=== PATIENT | female | born 1980 | race Caucasian/White ===

== ENCOUNTER → 2020-01-25 | Outpatient (CLI) | payer OTHER, SELFPAY ==
[2020-01-25 14:12] VITALS: BMI 31.5
--- NOTE | 2020-01-25 14:15 | ASPS_PTH ---
PATIENT: ELIZA CLEVELAND LOC: [facility] U#:[id number] AGE/SX: 39/F ROOM: RE01/25/[address]: Dr. Kennedy Power MD : 1980 BED: DIS: 01/25/2020 SPEC #: [id number] RECD: 01/25/20 15:52 STATUS: BELLA MATT #: [id number] LE: 01/25/20 14:[address]: Kennedy Power DEPT: CYTOLOGY RECD BY: Omaira Farley ENTERED: 01/26/20 07:27 SP TYPE: ASPIRATION OTHR DR: Dr. Cullen Del Castillo, DO No Primary Care Phys Tissues: Thyroid gland, NOS Procedures: Special Stain Group II Cytology Other HEADER OPERATION: Ultrasound-guided fine needle aspiration left thyroid PRE-OP DIAGNOSIS: Uninodular goiter TISSUE SUBMITTED: Fine needle aspiration left thyroid (12 slides) DIAGNOSIS CYTOLOGY Left thyroid nodule, ultrasound-guided FNA (smears): Consistent with chronic lymphocytic thyroiditis. Adequate for evaluation. See comment. SJ:edith 01/26/20 COMMENT Correlation with clinical, radiologic findings and appropriate follow up are necessary. CYTOLOGY STUDY Slides are reviewed. CYTOLOGY GROSS Received are 12 smears labeled with the patient's name and designated per the requisition as left thyroid. Submitted for staining. / edith 01/26/20 TC:5 CPT: 28899
== END | disposition home or self-care (01) ==
LOC: LABSPEC 16:03
PROVIDERS: Referring Provider Surgery; Visit Provider Surgery
DX: E04.1 Nontoxic single thyroid nodule (principal)
CPT/HCPCS: 88161; 88313

== ENCOUNTER 2020-02-07 09:19 | Day surgery (SDC) | payer SELFPAY, OTHER ==
[2020-01-18 13:34] VITALS: BMI 31.5
[2020-01-25 14:12] VITALS: BMI 31.5
--- NOTE | 2020-02-07 08:24 | HP_ITS ---
Intake Vital Signs 01/18/20 Height 5 ft 3 in 01/18/20 Weight: 145 lb 5 oz 01/18/20 BMI 25.7 01/18/20 BP 120/74 01/18/20 Blood Pressure Location Rt brachial 01/18/20 Position Sitting 01/18/20 Respiration 16 01/18/20 Pulse 81 01/18/20 Temp 98.1 F 01/18/20 Temp Source Temporal 01/18/20 Pulse Oximetry (%) 100 01/18/20 Oxygen Delivery Method room air Intake Visit Reasons: SECOND OPINION THYROID, RUQ PAIN Chief Complaint: epigastric/RUQ pain, left thyroid nodule Slide Attendant Required: No Is patient in pain?: No Allergies latex Allergy (Verified 01/18/20 13:33) Rash Medications dicyclomine 10 mg capsule 10 mg PO BID 01/18/20 [History Confirmed 01/18/20] lansoprazole 30 mg capsule,delayed release 30 mg PO TID cap 01/18/20 [History Confirmed 01/18/20] Is last menstrual period known: No Post menopausal: No Patient : No PFSH Medical History GERD (gastroesophageal reflux disease) (Acute) Hemorrhoid (Acute) Surgical History History of 3 sections (Acute) History of appendectomy (Acute) History of section (Acute) Family History Father Osteoarthritis Social History (Updated 01/18/20 @ 13:[address] Kennedy Power MD) Smoking Status: Never smoker HPI HPI Surgical H&P: Yes HPI: ELIZA CLEVELAND, is a 39 F who presents to the office today for Evaluation of epigastric pain and uninodular goiter. Patient has had an ultrasound done of her thyroid gland completed on 12/08/2019. This showed a 1.5 x 1.2 x 1 cm nodule on the left isthmus upper pole. She was also noted to have an elevated thyroid peroxidase antibody with her TSH T3 and free T4 all within normal limits. She has not had any neck tenderness and she has not been exposed to radiation of any kind. Patient has been experiencing epigastric pain into the right upper quadrant with increasing bloating over the last 1-1/2 years for the bloating. The pain is been happening over the last several months. Seems to be worse with spicy foods or greasy foods salads and raw vegetables. She was initially improving with some supplements but started to develop the discomfort again and subsequently stopped her supplements. She has also noticed improvement when she is taken some Pepto-Bismol. She has had normal stools but she has had some nausea and vomiting. She has been started on a proton pump inhibitor she has been given a prescription for Bentyl. On 12/04/2019 she had a positive H. pylori IgG qualitative test. She had a stool specimen which was negative for H. pylori antigen. She subsequently was not started on any antibiotics. She has had liver function test which have all been within normal limits.She has had a gallbladder ultrasound which showed no stones or sludge no gallbladder wall thickening and no pericholecystic fluid. Common bile duct was normal in size. She has had and a HIDA scan with ejection fraction which showed a 65% ejection fraction. ROS General General: No weight change, appetite, fatigue, colon cancer, breast cancer or weakness HEENT HEENT: No difficulty swallowing, eye injury, eye surgery, swollen glands or hoarseness Endo Endocrine: No thyroid disease, diabetes mellitus, thyroid cancer, Hair loss, heat intolerance or cold intolerance Musc Musculoskeletal: No back problems, arthritis, rheumatoid arthritis, gout or joint pain Cardio Cardiovascular: No murmur, pacemaker, heart disease, atrial fibrillation, high blood pressure, heart attack, heart stent, palpitations, shortness of breat with exertion or chest pain Psych Psychiatric: No depression, anxiety or hearing voices Resp Respiratory: No shortness of breath, No sleep apnea, No cough, No COPD, No asthma, No emphysema, No wheezing Gastro Gastrointestinal: Yes abdominal pain, No nausea or vomiting, No diarrhea, No constipation, No blood in stool, No acid reflux, Yes hemorrhoids, No ulcers, No gallbladder problem, No black,tarry stools [place] Hematologic: No blood thinners, No blood disorders, No bleeding, No anemia, No blood clots Neuro Neurologic: No weakness Exam Const General: no acute distress, well developed, well hydrated Orientation: oriented to person, oriented to place, oriented to time [facility] Head: normocephalic, atraumatic Ears: external ears normal Mouth: moist mucous membranes Other: Thyroid Exam: No hard nodules are identified on either lobe of the thyroid gland. There is no lymphadenopathy bilaterally. Eyes Sclera: sclerae normal Pupils: normal by confrontation Neck Neck: no lymphadenopathy noted Neck mass: No Thyroid: thyroid normal, symmetrical Chest Chest palpation & inspection: normal inspection of the chest Resp Effort & Inspection: normal respiratory effort Auscultation: clear to auscultation bilaterally Percussion: percussion normal Cardio Rate: regular rate Rhythm: regular rhythm Heart Sounds: no murmurs GI Palpation: soft, no hepatosplenomegaly, no masses, nontender Rectal Exam: other Other: Rectal exam deferred. Extrem General: normal to inspection, no clubbing, cyanosis or edema Assessment & Plan Problems 1. Uninodular goiter E04.1 2. Epigastric abdominal pain R10.13 Plan I have discussed the above with the patient. I have offered the patient esophagogastroduodenoscopy for evaluation. I have explained the risks/benefits of the procedure and described the procedure. I have discussed the risks with the patient, including but not limited to: infection, bleeding, perforation of the GI tract requiring emergency surgery, inability to complete the procedure, injury to any internal organs, complications of anesthesia, etc. - the patient understands and agrees to proceed. I have answered all the patient's questions to the patient's satisfaction and the patient has no further questions. The patient has been given instructions for the colon cleansing preparation. I will be doing a biopsy of both the stomach and the small intestine. I will also be doing a fine-needle aspiration of the left thyroid nodule. Risk benefits include bleeding bruising possible irritation to the muscles in that area have been reviewed with the patient the patient agrees to proceed. Coding Level of Care Code Off vis,new,level 4 Diagnoses Uninodular goiter E04.1 Epigastric abdominal pain R10.13 COVID (Procedure Consent) Procedure Criteria Procedure Criteria: Yes Elective The surgeon/proceduralist and patient have discussed in detail the risk of exposure to and/or potential harm posed by the COVID-19 virus with having a surgery/procedure at this time versus the risk of? delaying the surgery/procedure. It is not possible to know either the risk of delaying the surgery or procedure or chance of getting an infection with perfect accuracy, but a joint decision was made between the patient and the surgeon/proceduralist ?to proceed at this time with the scheduled surgery/procedure as indicated on the consent form. I have re-examined the patient. There are no clinical changes since date of exam.
[2020-02-07] MEDS: Lactated Ringers 1,000 ML 75 ML IV (09:40)
[2020-02-07 09:56] VITALS: BP 110/65; PULSE 76; RESP 16; TEMP 36.8; O2SAT 99; BMI 26.5
[2020-02-07 10:25] VITALS: BP 110/65; BP 95/49; PULSE 80; RESP 18; TEMP 37.1; O2SAT 95
--- NOTE | 2020-02-07 10:25 | OP.EGD_ITS ---
Patient Name: Irma Combs Procedure Date: 02/07/2020 10:07 AM Date of : 1980 Age: 39 Procedure: Upper GI endoscopy Indications: Epigastric abdominal pain Providers: Kennedy Power MD Referring MD: Nasra Laws Medicines: See the Anesthesia note for documentation of the administered medications Patient Profile: This is a 39 year old female. Refer to note in patient chart for documentation of history and physical. Complications: No immediate complications. Procedure: Pre-Anesthesia Assessment: - Prior to the procedure, a History and Physical was performed, and patient medications and allergies were reviewed. The patient's tolerance of previous anesthesia was also reviewed. The risks and benefits of the procedure and the sedation options and risks were discussed with the patient. All questions were answered, and informed consent was obtained. Prior Anticoagulants: The patient has taken no previous anticoagulant or antiplatelet agents. ASA Grade Assessment: II - A patient with mild systemic disease. After reviewing the risks and benefits, the patient was deemed in satisfactory condition to undergo the procedure. After obtaining informed consent, the endoscope was passed under direct vision. Throughout the procedure, the patient's blood pressure, pulse, and oxygen saturations were monitored continuously. The gastroscope was introduced through the mouth, and advanced to the second part of duodenum. The upper GI endoscopy was accomplished without difficulty. The patient tolerated the procedure well. Scope In: 10:17:15 AM Scope Out: 10:20:28 AM Total Procedure Duration Time 0 hours 3 minutes 13 seconds Findings: The examined esophagus was normal. No biopsies or other specimens were collected for this exam. The entire examined stomach was normal. Biopsies were taken with a cold forceps for Helicobacter pylori testing. The examined duodenum was normal. Biopsies for histology were taken with a cold forceps for evaluation of celiac disease. Impression: - Normal esophagus. No specimens collected. - Normal stomach. Biopsied. - Normal examined duodenum. Biopsied. Recommendation: - Await pathology results. - Repeat upper endoscopy (date not yet determined) for surveillance. - Return to my office in 1 week. - Continue present medications. Procedure Code(s): --- Professional --- 38657, Esophagogastroduodenoscopy, flexible, transoral; with biopsy, single or multiple Diagnosis Code(s): --- Professional --- R10.13, Epigastric pain CPT copyright 2017 [employer]. All rights reserved. The codes documented in this report are preliminary and upon customer engineering specialist review may be revised to meet current compliance requirements. MD Kennedy La MD 02/07/2020 10:25:15 AM This report has been signed electronically. Number of Addenda: 0 Note Initiated On: 02/07/2020 10:07 AM
--- NOTE | 2020-02-07 10:26 | OP.CCLET_ITS ---
02/07/2020 Nasra Laws Re : Upper GI endoscopy procedure for Irma Combs Dear Robert This procedure was performed on Friday, February 07, 2020. My impressions and recommendations are as follows: Impressions : - Normal esophagus. No specimens collected. - Normal stomach. Biopsied. - Normal examined duodenum. Biopsied. Recommendations : - Await pathology results. - Repeat upper endoscopy (date not yet determined) for surveillance. - Return to my office in 1 week. - Continue present medications. My findings are described in the full procedure note, which is enclosed. If I can be of further assistance, please feel free to contact me at Doctor phone number(s): , Fax: [phone], Work: . Sincerely, MD Kennedy La MD 02/07/2020 10:25:15 AM This report has been signed electronically.
[2020-02-07 10:30] VITALS: BP 110/65; BP 94/48; PULSE 72; RESP 16; O2SAT 96
--- NOTE | 2020-02-07 10:30 | EGD_PTH ---
PATIENT: ELIZA CLEVELAND LOC: EN U#:[id number] AGE/SX: 39/F ROOM: RE02/07/[address]: Dr. Kennedy Power MD : 1980 BED: DIS: 02/07/2020 SPEC #: [id number] RECD: 02/07/20 11:50 STATUS: BELLA REGenaro #: [id number] LE: 02/07/20 10:[address]: Kennedy Power DEPT: SURGICAL PATHOLOGY RECD BY: Jada Flannery ENTERED: 02/07/20 13:44 SP TYPE: EGD BIOPSY OTHR DR: Rosina Jones, IVAN-C Tissues: A - Duodenum, NOS B - Gastric mucous membrane Procedures: Surgery Specimen Level IV HEADER OPERATION: EGD ([facility] [place]) PRE-OP DIAGNOSIS: Uninodular goiter, epigastric abdominal pain TISSUE SUBMITTED: A - Duodenal biopsy, B - Antrum biopsy for histo and H. pylori MICROSCOPIC DIAGNOSIS A. Duodenal biopsy: A fragment of duodenal mucosa with congestion and hemorrhage. B. Antrum biopsy: Moderate chronic active gastritis. LITZY:edith 02/08/20 COMMENT B. The results of immunohistochemistry for Helicobacter pylori will be reported separately ([id number]). MICROSCOPIC DESCRIPTION Slides are reviewed. GROSS DESCRIPTION A - Received in fixative is one container labeled with the patient's name and designated duodenal biopsy. The specimen consists of one irregular fragment of light ko soft tissue that measures 0.4 x 0.3 x 0.1 cm. The specimen is totally submitted in one cassette. B - Received in fixative is one container labeled with the patient's name and designated antrum biopsy. The specimen consists of one irregular fragment of light ko soft tissue that measures 0.4 x 0.3 x 0.1 cm. The specimen is totally submitted in one cassette. / LITZY:edith 02/07/20 TC:2 CPT: 08289 x2
--- NOTE | 2020-02-07 10:30 | IMM_PTH ---
PATIENT: ELIZA CLEVELAND LOC: EN U#:[id number] AGE/SX: 39/F ROOM: RE02/07/[address]: Dr. Kennedy Power MD : 1980 BED: DIS: 02/07/2020 SPEC #: [id number] RECD: 02/07/20 15:32 STATUS: BELLA REQ #: [id number] LE: 02/07/20 10:[address]: Kennedy Power DEPT: IMMUNOHISTOCHEMISTRY RECD BY: Diya Davis ENTERED: 02/07/20 15:32 SP TYPE: IMMUNO OTHR DR: Rosina Jones, CIPRIANO Tissues: B - Stomach, NOS Procedures: H Pylori (initial) PHYSICIAN & INSTITUTION [place] [id number] SPECIMEN INFORMATION: Tissue Source: B - Antrum biopsy Clinical Info: Uninodular goiter, epigastric abdominal pain Specimen Number: [id number] CPT code: 75373 METHODOLOGY: Deparaffinized sections of prefer/formalin-fixed tissue or PAP/DQ stained slides are incubated with monoclonal/polyclonal antibodies/oligonucleotide probes. Localization is made via biotin free immunoperoxidase method. Appropriate controls are performed and reacted as expected. Results on target cell population are indicated in the following table: RESULTS: ANTIBODY / CLONE RESULT Block B H Pylori (polyclonal) positive These tests were developed and their performance characteristics determined by [facility]. They may not have been cleared or approved by the U.S. Food and Drug Administration. The FDA has determined that such clearance or approval is not necessary. INTERPRETATION: B. Antrum biopsy: Positive for numerous H. pylori organisms. LITZY:edith 02/08/20
[2020-02-07 10:35] VITALS: BP 110/65; BP 93/54; PULSE 73; RESP 16; O2SAT 97
[2020-02-07 10:43] VITALS: BP 110/65; BP 95/53; PULSE 67; RESP 16; TEMP 36.2; O2SAT 99
[2020-02-07 11:37] VITALS: BP 110/65
== END 2020-02-07 11:37 | disposition home or self-care (01) ==
LOC: EN 09:21 → AC 09:22
PROVIDERS: Anesthesiology; PCP Nurse Practitioner Family; Referring Provider Nurse Practitioner Family; Visit Provider Surgery
PROC: 0DJ08ZZ Inspection of Upper Intestinal Tract, Via Natural or Artificial Opening Endoscopic (ICD-10-PCS; CPT 43235; principal; 2020-02-07 10:25)
DX: K29.50 Unspecified chronic gastritis without bleeding (principal); B96.81 Helicobacter pylori [H. pylori] as the cause of diseases classified elsewhere; K21.9 Gastro-esophageal reflux disease without esophagitis; R10.13 Epigastric pain; E04.1 Nontoxic single thyroid nodule; Z20.828 Contact with and (suspected) exposure to other viral communicable diseases
CPT/HCPCS: 43239; 87635; 88305; 88342; C9803; J7120; J2405; U0003

== ENCOUNTER 2022-06-24 22:48 | Emergency (ER) | payer OTHER, SELFPAY ==
[2022-06-24 22:49] VITALS: BP 127/91; PULSE 112; RESP 16; TEMP 36.9; O2SAT 100; BMI 26.4
[2022-06-24] MEDS: 0.9% Normal Saline 1,000 ML 999 ML IV (23:45)
[2022-06-24] MEDS: Ketorolac 30 MG/ML Syringe IV (23:45)
[2022-06-24 23:52] LABS: Absolute Lymphocyte Count 1.85 X10^3/uL (0.83-4.51); Absolute Neutrophil Count 4.5 X10^3/uL (2.0-7.7); Basophil# 0.03 X10^3/uL; Basophil% 0.4 % (0-1); Eosinophil# 0.42 X10^3/uL; Eosinophils% 5.6 % (0-5); Hematocrit 42.2 % (37-47); Hemoglobin 14.7 g/dL (12.0-15.0); Lymphocyte # 1.85 X10^3/ul (0.83-4.51); Lymphocyte % 24.9 % (19-41); Mean Corp Hgb Conc 34.8 g/dL (32-36); Mean Corpuscular Hgb 31.5 pg (27.0-32.0); Mean Corpuscular Volume 90.4 fL (81-99); Monocyte% 8.1 % (0-10); NRBC Flagged by Analyzer 0 % (0-5); Neutrophil # 4.52 X10^3/uL (2.7-7.7); Neutrophil % 60.7 % (47-70); POSITIVE COUNT YES; Platelet Count 131 K/mm3 (150-450); RBC Distribution Width CV 12.5 % (11.6-14.6); RBC Distribution Width SD 41.1 fl (35.1-43.9); Red Blood Count 4.67 M/mm3 (4.2-5.4); White Blood Count 7.4 K/mm3 (4.4-11.0)
[2022-06-24 23:54] LABS: Differential Indicated SCAN CRITERIA MET
[2022-06-24 23:58] LABS: Color, Urine Amber (Yellow); Glucose, Dipstick Normal (Normal); Ketone-Dipstick 50 mg/dl (Negative); Leukocyte Esterase-Dipstick Negative /ul (Negative); Mucous, Urine 0 SEEN /hpf (<or=2+); Nitrite-Dipstick Positive (Negative); Occult Blood-Urine 10 /ul (Negative); Protein-Dipstick Negative (Negative); Red Blood Cells-Urine 0 SEEN /hpf (0-5); Urine Clarity Clear (Clear); Urine Urobilinogen 4 mg/dl (Normal)
[2022-06-25 00:01] LABS: Internal QC Validated? YES +Cl - CLEAR BKGD
[2022-06-25 00:02] LABS: Pregnancy, Urine Negative Negative
[2022-06-25 00:05] LABS: Bacteria RARE /hpf (None Seen); Squamous Epithelial Cells - UA 0-5 SEEN /hpf (5-10); Urine Bilirubin Dipstick 3 mg/dL (Negative); White Blood Cells 0-5 SEEN /hpf (0-5)
[2022-06-25 00:10] LABS: BUN 12 mg/dL (7-18); Estimated Creatinine Clearance 74.02 ml/min; Glucose 102 mg/dL (74-106)
[2022-06-25 00:11] LABS: Anion Gap 7 (5-15); BUN/Creat Ratio 13.3 RATIO (10-20); Calcium,Total 9.5 mg/dL (8.5-10.1); Chloride 106 mmol/L (98-107); EST Glomerular Filtration Rate 73 mL/min (>60); Est Glom Filt Rate - Afr Amer 88 mL/min (>60); Sodium Level 138 mmol/L (136-145)
[2022-06-25 00:18] LABS: Platelet Morphology CLUMPED
[2022-06-25 01:31] VITALS: BP 106/71; PULSE 84; RESP 15; TEMP 36.8; O2SAT 97
--- NOTE | 2022-06-25 01:40 | EDS_ITS ---
HPI History of Present Illness Chief Complaint: Complaint Narrative Narrative: Patient is a 41-year-old female with no significant past medical history. She states she was seen at an outside facility and diagnosed with a UTI roughly 5 to 7 days ago. She states that she did not feel she was having improvement with her Keflex so she was transition to Macrobid. She states she has been on that now for a few days but despite taking it has still had urinary frequency with this spasm sensation and now she is developing bilateral lower abdominal/inguinal pain. She denies any fevers or chills any vaginal discharge or bleeding or concern for but with the persistent symptoms comes in for evaluation [facility] Medical History (Updated 06/25/22 @ 01:[address] Jaden Garcia, DO) Chronic lymphocytic thyroiditis GERD (gastroesophageal reflux disease) Hemorrhoid Positive H. pylori test Uninodular goiter Home Medications dicyclomine 10 mg capsule 10 mg PO BID 01/18/20 [History Last Taken Unknown] cephalexin 500 mg capsule 500 mg PO Q12H 10 days #20 caps 06/19/22 [Rx Last Taken Unknown] Allergy/AdvReac Type Severity Reaction Status Date / Time latex Allergy Rash Verified 06/24/22 22:51 Family History Father Osteoarthritis Surgical History History of 3 sections History of appendectomy History of section History of esophagogastroduodenoscopy (EGD) (~02/07/20) history thyroid biopsy (~01/25/20) Social History (Updated 06/25/22 @ 00:[address] Zaynab José MD) household members: spouse and family Smoking Status: Never smoker alcohol intake: never substance use type: does not use ROS ROS ED Constitutional Constitutional ED: Denies chills or fever(s) ENT ENT ED: Denies sore throat Cardiovascular Cardiovascular: Denies chest pain Respiratory/Chest Respiratory/Chest: Denies cough or dyspnea Gastrointestinal Gastrointestinal: Reports abdominal pain; Denies diarrhea, nausea or vomiting Genitourinary Genitourinary ED: Reports urinary frequency; Denies dysuria or hematuria Musculoskeletal Musculoskeletal: Reports back pain; Denies myalgias Integumentary Denies rash Neurologic Neurologic: Denies headache(s) Hematologic/Lymphatic Hematologic/Lymphatic: Denies easy bleeding or easy bruising EXAM Physical Exam Const Vital Signs: 06/24/22 22:49 06/25/22 01:31 06/25/22 01:51 Temperature 98.4 F 98.2 F Temperature Source Temporal Oral Pulse Rate 112 H 84 84 Respiratory Rate 16 15 15 Blood Pressure 127/91 H 106/71 106/71 Blood Pressure Mean 103 82 Pulse Ox 100 97 97 Oxygen Delivery Method Room Air Room Air Positive well nourished and well developed General Appearance ED: well developed HEENT Reports moist mucous membranes Eyes PERRL and EOMs intact bilaterally General Eye ED: Negative for scleral icterus Neck supple Resp normal respiratory effort and clear to auscultation bilaterally Cardio regular rate and regular rhythm Rate: other Other Details: Radial pulses are plus 2 out of 4 bilaterally are equal and symmetric GI non-distended and no masses GI Narrative: Abdomen is soft and nondistended with normal active bowel sounds. There is mild pain on palpation in the suprapubic region and bilateral inguinal regions without voluntary guarding or rigidity. No organomegaly to suggest bladder retention Auscultation: normoactive bowel sounds Palpation: soft Back/Spine Back/Spine Narrative: Mild right CVA pain Extremity normal to inspection Neuro oriented x3 and CN's II-XII intact bilaterally Sensorium / Orientation: alert Psych mental status grossly normal Skin no rashes or lesions noted Skin Narrative: No overlying soft tissue changes to suggest trauma or infection General Skin Exam: Negative for jaundice MDM MDM MDM Narrative Medical decision making narrative: Patient presented to the ER in no acute distress with stable vitals and a soft nonsurgical abdomen. She reported lower abdominal pain with urinary frequency and recent diagnosis of UTI and now she had mild right-sided CVA pain. Secondary to this there is concern that she is developing pyelonephritis or has some type of ovarian pathology with the inguinal pain causing her worsening symptoms. Therefore elected to check blood work urine sample and a CT scan with IV contrast based on the persistent nature of her symptoms despite antibiotic use. Blood work revealed no clinically significant findings and urine did not show any obvious infection as she has only few bacteria reported with no white blood cells. CT scan revealed an involuting ovarian cyst but otherwise no acute abdominal pathology. Therefore at this time as she does not have signs of urosepsis or acute kidney injury there is no signs of pyelonephritis or obvious intestinal infection and it does not appear that the involuting cyst would be causing issues I do not believe there is need for ultrasound or further work-up. Patient's urine was sent for culture but she was advised to stay on her Macrobid as the urine sample shows that the medication has been helping. She was advised to follow-up with her family doctor and/or urology for further testing if symptoms persist despite treatment and negative work-up. Plan of care was discussed with patient and and both are agreeable to it History & Record Review Discussion w/independent historian: Patient and Significant other Lab Data Attestation: I reviewed the patient's lab results. Labs: Laboratory Results - last 24 hr 06/24/22 06/24/22 06/24/22 23:40 23:40 23:50 WBC 7.4 RBC 4.67 Hgb 14.7 Hct 42.2 MCV 90.4 MCH 31.5 MCHC 34.8 RDW Std Deviation 41.1 RDW Coeff of Ramírez 12.5 Plt Count 131 L MPV 12.0 Immature Gran % (Auto) 0.300 Neut % (Auto) 60.7 Lymph % (Auto) 24.9 Donley % (Auto) 8.1 Eos % (Auto) 5.6 H Baso % (Auto) 0.4 Absolute Neuts (auto) 4.5 Absolute Lymphs (auto) 1.85 Nucleated RBC % 0 Plt Morphology Comment CLUMPED Sodium 138 Potassium 4.0 Chloride 106 Carbon Dioxide 25.0 Anion Gap 7 BUN 12 Creatinine 0.90 Estim Creat Clear Calc 74.02 Est GFR (MDRD) Af Amer 88 Est GFR (MDRD) Non-Af 73 BUN/Creatinine Ratio 13.3 Glucose 102 Calcium 9.5 Urine Color Kari Urine Clarity Clear Urine pH 6.0 Ur Specific Emery 1.020 Urine Protein Negative Urine Glucose (UA) Normal Urine Ketones 50 H Urine Occult Blood 10 H Urine Nitrite Positive H Urine Bilirubin 3 H Urine Urobilinogen 4 H Ur Leukocyte Esterase Negative Urine RBC 0 SEEN Urine WBC 0-5 SEEN Ur Squamous Epith Cells 0-5 SEEN Urine Bacteria RARE Urine Mucus 0 SEEN Urine Test Negative Radiography Diagnostic Testing: Clinical Impression(s) from Imaging Studies Abdomen/Pelvis CT 06/25/22 23:15 IMPRESSION: No CT evidence of acute intra-abdominal disease. Electronically Signed: Stephania Combs MD at 1:23 EST Reading Location ID and State: [facility] / [place] , Service support , Discharge Plan Triage Chief Complaint: Complaint ED Provider: Jaden Garcia Dx/Rx/DC Orders Clinical Impression: Dysuria, Nonspecific abdominal pain Instructions: Abdominal Pain, Dysuria Prescriptions: No Action dicyclomine 10 mg capsule 10 mg PO BID cephalexin 500 mg capsule 500 mg PO Q12H 10 Days Qty: 20 0RF Primary Care Provider: Rosina Jones NP Referrals: Rosina Jones NP, TRUCK MECHANIC APPRENTICE-C [Primary Care Provider] - Activity Restrictions/Additional Instructions: Please finish out the Macrobid/nitrofurantoin that you are taking along with the Pyridium as your urine sample today does shows trace amount of bacteria indicating the antibiotic is working. Your urine was sent for culture but if you do not hear anything in the next 2 to 3 days then this indicates that the Macrobid was appropriate. If you have any further concerns please return to the ER for repeat evaluation Disposition Disposition: Home, Self Care Discharge Date/Time: 06/25/22 02:12
[2022-06-25 01:51] VITALS: BP 106/71; PULSE 84; RESP 15; O2SAT 97
--- NOTE | 2022-06-25 23:15 | CT_ITS ---
STUDY: CT ABDOMEN AND PELVIS WITH CONTRAST REASON FOR EXAM: Female, 41 years old patient with abdominal pain. RADIATION DOSAGE (If Supplied By Facility): CTDIvol = ( 29.2 ) mGy, DLP = ( 781.45 ) mGycm TECHNIQUE: Transaxial images were obtained from the dome of the diaphragm to the symphysis pubis without oral contrast. 100 mL of IV Isovue-370 was administered. Sagittal and coronal images were reconstructed. Individualized dose optimization techniques were used for this CT. COMPARISON: Prior comparison studies are not available for review at this time. FINDINGS: The visualized lung bases are unremarkable. The visualized portions of the heart are within normal limits. Normal liver. Normal gallbladder and extrahepatic biliary system. Normal spleen. Normal pancreas. Normal bilateral adrenal glands. Normal right kidney. Normal left kidney. Normal visualized stomach. There is no obvious dilated bowel, ascites or pneumoperitoneum. The small bowel has a grossly normal appearance. There is stool visible throughout the colon with scattered diverticula. There is non-visualization of the appendix. Normal abdominal aorta. Normal inferior vena cava. Normal retroperitoneum. Urinary bladder is nondistended. Normal visualized uterus. There is a small amount of pelvic fluid which may be physiologic. There is involuting left-sided ovarian cyst Normal abdominal wall. Normal osseous structures. CT/Abdomen/Pelvis W IV Cont ONLY IMPRESSION: No CT evidence of acute intra-abdominal disease. Electronically Signed: Stephania Combs MD at 1:23 EST ,
== END 2022-06-25 02:12 | disposition home or self-care (01) ==
PROVIDERS: Emergency Provider Emergency Medicine; PCP Nurse Practitioner Family; Visit Provider Emergency Medicine
DX: R30.0 Dysuria (principal); R10.32 Left lower quadrant pain; R10.31 Right lower quadrant pain
CPT/HCPCS: 74177; 80048; 81001; 81025; 85025; 87086; 96361; 96374; 99282; Q9967; A4216

== ENCOUNTER → 2023-05-13 | Outpatient (CLI) | payer OTHER, SELFPAY ==
--- OUTSIDE RECORDS SUMMARY | 2023-05-13 14:44 | XMS RPT_ITS | CCD ---
Author Name Unknown Address [facility] [place] [id number] Organization [facility] Care Team Providers Care Core Rescuer Name Role Phone Robert CLIN NURSE.Rosina NICHOLSON Primary Care Provider ROBERT, ROSINA Primary Care Unavailable ROBERT, ROSINA Primary Care Unavailable ROBERT, ROSINA Attending Unavailable ROBERT, ROSINA Referring Unavailable ROBERT, ROSINA Primary Care Unavailable ROBERT, ROSINA Referring Unavailable ROBERT, ROSINA Primary Care Unavailable ROBERT, ROSINA Attending Unavailable ROBERT, ROSINA Primary Care Unavailable ROBERT, ROSINA Primary Care Unavailable ROBERT, ROSINA Primary Care Unavailable Robert CLIN NURSE.Rosina NICHOLSON Primary Care Provider Allergies Allergy Classification Reported Allergen(s) Allergy Type Date of Onset Reaction(s) Facility (19 sources) Latex; Translations: [LATEX] Drug Allergy 03-27-2013 [facility] Work Phone: Medications Current Medications Medication Drug Class(es) Dates Sig (Normalized) Sig (Original) ciprofloxacin 500 mg oral tablet (3 sources) Quinolone Antimicrobial Start: 06-25-2022 End: 07-02-2022 take 1 tablet by mouth twice daily ciprofloxacin HCl (CIPRO) 500 mg tablet Take 1 tablet by mouth twice daily for 7 days. 14 tablet 0 06/25/2022 07/02/2022 Active Completed/Discontinued Medications Medication Drug Class(es) Dates Sig (Normalized) Sig (Original) dicyclomine hydrochloride 10 mg oral capsule (5 sources) Anticholinergic Start: 01-01-2020 End: 04-06-2022 take 1 capsule by mouth every six hours as needed dicyclomine (BENTYL) 10 mg capsule Take 1 capsule by mouth four times daily as needed. 30 capsule 1 01/01/2020 04/06/2022 Discontinued Problems Active Problems Problem Classification Problem Date Documented Date Episodic/Chronic Abdominal pain (3 sources) Pain in pelvis; Translations: [Pelvic and perineal pain] Onset: 07-16-2022 Episodic Genitourinary symptoms and ill-defined conditions (9 sources) Increased frequency of urination; Translations: [Frequency of micturition] Onset: 04-01-2022 Episodic Other and unspecified benign neoplasm (1 source) Lipoma (clinical); Translations: [Benign lipomatous neoplasm of other sites] Episodic Other female genital disorders (2 sources) Vaginal discharge; Translations: [Other specified noninflammatory disorders of vagina] Episodic Other female genital disorders (1 source) Other specified noninflammatory disorders of vagina; Translations: [Vaginal discharge] Onset: 07-16-2022 Episodic Other screening for suspected conditions (not mental disorders or infectious disease) (1 source) Patient encounter status; Translations: [Encounter for screening mammogram for malignant neoplasm of breast] Episodic Thyroid disorders (1 source) Thyroid nodule; Translations: [Nontoxic single thyroid nodule] Chronic Urinary tract infections (6 sources) Acute cystitis; Translations: [Acute cystitis with hematuria] Onset: 04-01-2022 Episodic Past or Other Problems Problem Classification Problem Date Documented Da te Episodic/Chronic Other and unspecified benign neoplasm (1 source) Benign lipomatous neoplasm of other sites; Translations: [Lipoma of other specified sites] Onset: 04-01-2022 Episodic Results Test Name Value Interpretation Reference Range Facil ity Vital Signs Date Time Vital Sign Value Performing Clinician Coleen pink 07-15-2022 11:41-0400 Body weight 73.57 kg Rosina Jones APRN.CNP Work Phone: [facility] 07-15-2022 11:41-0400 Diastolic blood pressure 62 mm[Hg] Rosina Jones APRN.CNP Work Phone: [facility] 07-15-2022 11:41-0400 Heart rate 99 /min Rosina Jones APRN.CNP Work Phone: [facility] 07-15-2022 11:41-0400 Respiratory rate 16 /min Rosina Jones APRN.CNP Work Phone: [facility] 07-15-2022 11:41-0400 SaO2% (BldA) [Mass fraction] 99 % Rosinajaskaran Stackman CLIN NURSE.SET UP WORKER Work Phone: [facility] 07-15-2022 11:41-0400 Systolic blood pressure 104 mm[Hg] Rosina Stackman CLIN NURSE.SET UP WORKER Work Phone: [facility] 06-23-2022 09:31-0500 Body temperature 97.7 [degF] Sima Praisler-Wood CLIN NURSE.SET UP WORKER Work Phone: [facility] 06-23-2022 09:31-0500 Body weight 72.12 kg Sima Praisler-Wood CLIN NURSE.SET UP WORKER Work Phone: [facility] 06-23-2022 09:31-0500 Diastolic blood pressure 70 mm[Hg] Sima Praisler-Wood CLIN NURSE.SET UP WORKER Work Phone: [facility] 06-23-2022 09:31-0500 Heart rate 110 /min Sima Praisler-Wood CLIN NURSE.SET UP WORKER Work Phone: [facility] 06-23-2022 09:31-0500 Respiratory rate 16 /min Sima Praisler-Wood CLIN NURSE.SET UP WORKER Work Phone: [facility] 06-23-2022 09:31-0500 SaO2% (BldA) [Mass fraction] 97 % Sima Praisler-Wood CLIN NURSE.SET UP WORKER Work Phone: [facility] 06-23-2022 09:31-0500 Systolic blood pressure 122 mm[Hg] Sima Praisler-Wood CLIN NURSE.SET UP WORKER Work Phone: [facility] 05-26-2022 07:36-0500 Body temperature 97.59 [degF] Deon Fisher CLIN NURSE.SET UP WORKER Work Phone: [facility] 05-26-2022 07:36-0500 Body weight 72.58 kg Deon Fisher CLIN NURSE.SET UP WORKER Work Phone: [facility] 05-26-2022 07:36-0500 Diastolic blood pressure 66 mm[Hg] Deon Phillip CLIN NURSE.SET UP WORKER Work Phone: [facility] 05-26-2022 07:36-0500 Heart rate 88 /min Deon Phillip CLIN NURSE.SET UP WORKER Work Phone: [facility] 05-26-2022 07:36-0500 Respiratory rate 16 /min Deon Phillip CLIN NURSE.SET UP WORKER Work Phone: [facility] 05-26-2022 07:36-0500 SaO2% (BldA) [Mass fraction] 98 % Deon Phillip CLIN NURSE.SET UP WORKER Work Phone: [facility] 05-26-2022 07:36-0500 Systolic blood pressure 102 mm[Hg] Deon Phillip CLIN NURSE.SET UP WORKER Work Phone: [facility] 04-13-2022 18:18-0500 Body temperature 97.2 [degF] January Natalio CLIN NURSE.SET UP WORKER Work Phone: [facility] 04-13-2022 18:18-0500 Body weight 74.21 kg January Natalio CLIN NURSE.SET UP WORKER Work Phone: [facility] 04-13-2022 18:18-0500 Diastolic blood pressure 80 mm[Hg] January Natalio CLIN NURSE.SET UP WORKER Work Phone: [facility] 04-13-2022 18:18-0500 Heart rate 80 /min January Natalio CLIN NURSE.SET UP WORKER Work Phone: [facility] 04-13-2022 18:18-0500 Respiratory rate 20 /min January Natalio CLIN NURSE.SET UP WORKER Work Phone: [facility] 04-13-2022 18:18-0500 SaO2% (BldA) [Mass fraction] 98 % January Natalio CLIN NURSE.SET UP WORKER Work Phone: [facility] 04-13-2022 18:18-0500 Systolic blood pressure 120 mm[Hg] January Natalio CLIN NURSE.SET UP WORKER Work Phone: [facility] 04-01-2022 10:52-0500 Body temperature 98.4 [degF] Rosina Robert CLIN NURSE.SET UP WORKER Work Phone: [facility] 04-01-2022 10:52-0500 Body weight 72.76 kg Rosina Robert CLIN NURSE.SET UP WORKER Work Phone: [facility] 04-01-2022 10:52-0500 Diastolic blood pressure 70 mm[Hg] Rosina Robert CLIN NURSE.SET UP WORKER Work Phone: [facility] 04-01-2022 10:52-0500 Heart rate 86 /min Rosina Robert CLIN NURSE.SET UP WORKER Work Phone: [facility] 04-01-2022 10:52-0500 SaO2% (BldA) [Mass fraction] 100 % Rosina Robert CLIN NURSE.SET UP WORKER Work Phone: [facility] 04-01-2022 10:52-0500 Systolic blood pressure 112 mm[Hg] Rosina Robert CLIN NURSE.SET UP WORKER Work Phone: [facility] Encounters Encounter Date Encounter Type Care Provider Facility Start: 07-20-2022 Telephone encounter Rosina [facility] CLIN NURSE.SET UP WORKER Work Phone: [facility] Procedures Date Procedure Procedure Detail Performing Clinician Start: 07-16-2022 Us pelvic nonobstetr ic image dcmtn limited/f/u Rosina Robert CLIN NURSE.SET UP WORKER Work Phone: Start: 07-15-2022 End: 07-15-2022 Urnls dip stick/tablet rgnt auto w/o microscopy Rosina Robert CLIN NURSE.SET UP WORKER Work Phone: Start: 06-23-2022 Urnls dip stick/tabl et rgnt auto w/o microscopy Chelle Shukla PA-C Work Phone: Start: 05-26-2022 Urnls dip stick/tabl et rgnt auto w/o microscopy Deon Fisher CLIN NURSE.SET UP WORKER Work Phone: Start: 04-13-2022 Culture bacterial quanttative colony count urine January Natalio CLIN NURSE.SET UP WORKER Work Phone: Start: 04-13-2022 Urnls dip stick/tabl et rgnt auto w/o microscopy Januarykristofer Lance CLIN NURSE.SET UP WORKER Work Phone: Start: 04-01-2022 Culture bacterial quanttative colony count urine Rosina Robert CLIN NURSE.SET UP WORKER Work Phone: Start: 04-01-2022 Urnls dip stick/tabl et rgnt auto w/o microscopy Rosinadarrel Stackman CLIN NURSE.SET UP WORKER Work Phone: Start: 08-11-2021 soft tissue head & neck real time imge docm [facility] Provider Plan of Treatment Date Care Activity Detail Author Start: 07-16-2027 HPV TESTING HPV TESTING [facility] Start: 07-16-2027 Pap Testing Pap Testing [facility] Start: 11-13-2024 HPV TESTING HPV TESTING [facility] Start: 11-13-2024 PAP TESTING PAP TESTING [facility] Start: 07-26-2023 Urine microalbumin profile [facility] Start: 12-18-2022 Influenza vaccination [facility] Start: 04-19-2022 DEPRESSION ASSESSMENT DEPRESSION ASSESSMENT [facility] Start: 12-18-2021 Influenza vaccination [facility] Start: 04-19-2021 DEPRESSION ASSESSMENT DEPRESSION ASSESSMENT [facility] Start: 2020 Mammography [facility] Start: 1998 HEPATITIS C SCREENING HEPATITIS C SCREENING [facility] Start: 1998 HIV SCREENING HIV SCREENING [facility] Start: 1992 Adult depression screening assessment DEPRESSION SCREENING [facility] Start: 1985 COVID-19 VACCINE (#1) COVID-19 VACCINE (#1) [facility] Start: 1985 COVID-19 VACCINE (1) COVID-19 VACCINE (1) [facility] Start: 02-11-1981 COVID-19 VACCINE (#1) COVID-19 VACCINE (#1) [facility] Start: 1980 HEPATITIS B (1 of 3 - 3-dose series) HEPATITIS B (1 of 3 - 3-dose series) [facility] Start: 1980 Hepatitis B Vaccine (1 of 3 - 3-dose series) Hepatitis B Vaccine (1 of 3 - 3-dose series) [facility] Bacteria identified in Urine by Culture URINE CULTURE Microbiology Routine Urinary frequency Burning with urination Acute cystitis with hematuria 04/01/2022 11:36 AM EST [facility] Work Phone: Bacteria identified in Urine by Culture URINE CULTURE Microbiology Routine Urinary frequency Ordered: 05/26/2022 [facility] Work Phone: Immunizations Immunization Date Immunization Notes Care Provider Ruthie dolan 07-25-2013 tetanus toxoid, redu maggie diphtheria toxoid, and acellular pertussis vaccine, adsorbed Us 2 Work Phone: [facility] Payers Date Payer Category Payer Unknown [id number] 2019 Unknown [id number] 2019 Unknown [id number] Social History Date Type Detail Facility Start: 04-01-2022 Tobacco smoking stat us AZIS Never smoked tobacco [facility] Start: 01-11-2020 End: 07-15-2022 Alcohol intake Current non-drinker of alcohol (finding) [facility] Start: 1980 Sex Assigned At Not on file [facility] Start: 04-01-2022 Tobacco use and exposure Smoke less tobacco non-user [facility] Start: 03-27-2020 End: 07-15-2022 History of Social function [facility] Start: 03-27-2020 End: 07-15-2022 Tobacco use panel [facility] National Score (1-10 0), lower number is lower risk Not on file [facility] Clinical Notes 03-27-2013 to 09-23-2022 Telephone Encounter - Mary Bone LPN - 07/20/2022 1:21 PM EDTTelephone Encounter - Rosina Jones APRN.CNP - 07/20/2022 1:14 PM Xenia Garcia RDMS - 07/16/2022 2:30 PM EDT Note Date & Type Note Facility 09-23-2022 Note Patient Outreach (IN [facility]) MEGHAIRMA Timothy ([id number]) 1980 F Date Time Provider Department 09/23/22 ROSINA JONES During your visit today, we recorded the following information about you: Allergies As of Date: 09/23/2022 Noted Allergy Reaction LATEX 03/27/2013 2 - Rash Date Reviewed: 07/15/2022 Reviewed by: Rosina Jones APRN.SET UP WORKER - Fully Assessed Visit Diagnosis:Encounter for screening mammogram for breast cancer [Z12.31] Order(s):[facility] SCREENING [[id number]] Order #: [id number] FUTURE Prescriptions as of 09/28/2022 - Lactobacillus acidophilus (PROBIOTIC ORAL) Take by mouth. - MULTIVITAMIN ORAL Take by mouth. Problem List As Of Date 09/23/2022 Noted Resolved SUPERVIS OTHER NORMAL PREG [Z34.80] 06/08/2007 11/25/2007 History of [Z98.891] 03/27/2013 10/30/2013 Late care [O09.30] 03/27/2013 10/30/2013 Family history of cleft palate [Z82.79] 03/27/2013 10/30/2013 Supervision of other normal [Z34.80] 03/27/2013 10/30/2013 Encounter Status:Closed by [employer], PRODUSER on 09/28/22 [facility] 07-20-2022 Miscellaneous Notes Spoke with pt gave information provided. Pt voices understanding. Please let Irma know that her PAP and other testing have all come back normal. Rosina Jones APRN.CNP documented in this encounter [facility] 07-16-2022 Note HNO ID: [id number] Author: Xenia Sarabia RDMS Service: ? Author Type: Kel[employer] Seag[employer] Gatherer Type: Progress Notes Filed: 07/16/2022 3:06 PM Note Text: Radiology Service Progress Note PATIENT NAME: Irma Combs DATE OF SERVICE: July 16, 2022 TIME: 3:06 PM PATIENT IDENTITY VERIFICATION COMPLETED USING TWO (2) IDENTIFIERS: Name and Date of confirmed by patient verbally. FALL SCREENING: Has the patient had 2 falls in the last year or 1 fall with injury or currently using an Ambulatory Assistive Device (Walker, Cane, Wheelchair, Crutches, etc.)? No PATIENT GENDER DATA: Female. status: : No status: NO. PATIENT RELEVANT IMPLANT DATA REVIEWED: Not Applicable RADIOLOGY DEPARTMENT: Ultrasound PERIPHERAL IV DATA: Not applicable SIGNED BY: Xenia Sarabia RDMS July 16, 2022 3:06 PM [facility] 07-16-2022 Miscellaneous Notes Noted, thank you. Rosina Jones APRN.LYN Patient notified of results, verbalizes understanding of instructions. Pt. stated she is doing better. Sara Strong LPN Please let Irma know I received the results of her ultrasound and they look normal. How is she feeling? Rosina Jones APRN.CNP documented in this encounter [facility] 07-16-2022 History of Presen t illness Narrative Radiology Service Progress Note PATIENT NAME: Irma Combs DATE OF SERVICE: July 16, 2022 TIME: 3:06 PM PATIENT IDENTITY VERIFICATION COMPLETED USING TWO (2) IDENTIFIERS: Name and Date of confirmed by patient verbally. FALL SCREENING: Has the patient had 2 falls in the last year or 1 fall with injury or currently using an Ambulatory Assistive Device (Walker, Cane, Wheelchair, Crutches, etc.)? No PATIENT GENDER DATA: Female. status: : No status: NO. PATIENT RELEVANT IMPLANT DATA REVIEWED: Not Applicable RADIOLOGY DEPARTMENT: Ultrasound PERIPHERAL IV DATA: Not applicable SIGNED BY: Xenia Sarabia RDMS July 16, 2022 3:06 PM documented in this encounter [facility] 07-15-2022 Note HNO ID: [id number] Author: Rosina Jones APRN.SET UP WORKER Service: ? 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 Recently had UTI beginning of june. HPI Irma Combs is a 41 year old female who presents here today for Above Complaints. Today: Has had multiple urinary tract infections since March 2022 and has been treated multiple places with multiple antibiotics. Has been treated in office by myself, [facility], [facility], [facility]. Antibiotics: Keflex, Macrobid, Cipro. Comes to the office today c/o continued burning with urination, small amount white discharge. Mild itching. No foul odor. Has not had intercourse since March when this all began. Does always urinate following intercourse. Not -tubes have been tied. No fevers. LMP 06/30/2022 as was normal for her. Is scheduled to see urology on 08/03. Past medical history, appointments, medications, allergies reviewed. Previous Medical History PAST MEDICAL HISTORY Diagnosis Date Anemia WITH Previous Surgical History PAST SURGICAL HISTORY Procedure Laterality Date APPENDECTOMY 1992 DELIVERY ONLY , low cervicalX3 DELIVERY ONLY 09/15/13 , low transverse LIG/TRNSXJ FLP TUBE ABDL/VAG APPR UNI/BI 09/15/13 Tubal ligation Family History FAMILY HISTORY Problem Relation Age of Onset Arthritis Mother Arthritis Maternal Grandmother Heart Maternal Grandfather Stroke Maternal Grandfather Cancer Paternal Grandfather BRAIN Patient Allergies ALLERGIES Allergen Reactions Latex Rash Current Medications Current Outpatient Medications on File Prior to Visit Medication Sig Lactobacillus acidophilus (PROBIOTIC ORAL) Take by mouth. MULTIVITAMIN ORAL Take by mouth. phenazopyridine (PYRIDIUM) 200 mg tablet Take 1 tablet by mouth three times daily as needed. (Patient not taking: Reported on 07/15/2022) No current facility-administered medications on file prior to visit. Social History Social History Tobacco Use Smoking status: Never Smokeless tobacco: Never Vaping Use Vaping Use: Never used Substance Use Topics Alcohol use: No Drug use: No Review of Symptoms REVIEW OF SYSTEMS See HPI, otherwise negative EXAM: BP 104/62 (BP Site: Left Arm, BP Position: Sitting, BP Cuff Size: Regular Adult) Pulse 99 Resp 16 Wt 73.6 kg (162 lb 3.2 oz) LMP 06/09/2022 (Within Days) SpO2 99% BMI 27.84 kg/m? General Appearance: Well appearing, alert, in no acute distress, well-hydrated, well nourished.. Lungs: Lungs clear to auscultation. No wheezing, rhonchi, rales.. Heart: RRR without murmur, gallop, or rubs. No ectopy. Abdomen: Normal abdominal exam, Abdomen soft, non-tender. Bowel sounds normal. No masses, organomegaly. Pelvic: External genitalia Normal and vagina normal., Bimanual exam normal. No vulvar lesions, normal discharge, well estrogenized, cervical lesion polyp noted to be pink-previously assessed by DIRECTOR STERILE PROCESSING and found to be benign Health Maintenance List HEPATITIS B(1 of 3 - 3-dose series) Never done COVID-19 VACCINE(1) Never done HEPATITIS C SCREENING Never done HIV SCREENING Never done MAMMOGRAM Never done INFLUENZA(1) Never done DEPRESSION ASSESSMENT Never done DTAP,TDAP,TD(2 - Td or Tdap) due on 07/26/2023 PAP TESTING due on 11/13/2024 HPV TESTING due on 11/13/2024 Data reviewed Previous records, office notes ASSESSMENT/PLAN: 1. Burning with urination - ICD9: 788.1, ICD10: R30.0 (primary diagnosis) Complete PAP exam today, no abnormal visual findings. UA with trace blood. Difficulty correctly diagnosing and treating patient as she has been seen so many different places, told different things, given multiple tx. Does have urology appointment scheduled next month on 08/03. Cervical samples to r/o other possible causes. Questioning possible IC. Negative abdominal/pelvic CT at [facility]. Pelvic ultrasound ordered today. - UA DIP, URINE (POC) - PAP TEST - T VAGINALIS AMPLIFICATION - GC/CHLAMYDIA AMPLIF, URINE - URINE CULTURE - NANCY / TRICHOMONAS AMPLIFICATION - BACTERIAL VAGINOSIS AMPLIFICATION - HCG QUAL UR B/O - US FEMALE PELVIS TRANSABD LTD - US FEMALE PELVIS TRANSVAG - GC/CHLAMYDIA DNA DET 2. Vaginal discharge - ICD9: 623.5, ICD10: N89.8 Complete PAP exam today, no abnormal visual findings. UA with trace blood. Difficulty correctly diagnosing and treating patient as she has been seen so many different places, told different things, given multiple tx. Does have urology appointment scheduled next month on 08/03. Cervical samples to r/o other possible causes. Questioning possible IC. Negative abdominal/pelvic CT at [facility]. Pelvic ultrasound ordered today. - UA DIP, URINE (POC) - PAP TEST - T VAGINALIS AMPLIFICATION - GC/CHLAMYDI (more content not included)... 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 Recently had UTI beginning of june. HPI Irma Combs is a 41 year old female who presents here today for Above Complaints. Today: Has had multiple urinary tract infections since March 2022 and has been treated multiple places with multiple antibiotics. Has been treated in office by myself, [facility], [facility], [facility]. Antibiotics: Keflex, Macrobid, Cipro. Comes to the office today c/o continued burning with urination, small amount white discharge. Mild itching. No foul odor. Has not had intercourse since March when this all began. Does always urinate following intercourse. Not -tubes have been tied. No fevers. LMP 06/30/2022 as was normal for her. Is scheduled to see urology on 08/03. Past medical history, appointments, medications, allergies reviewed. Previous Medical History PAST MEDICAL HISTORY Diagnosis Date Anemia WITH Previous Surgical History PAST SURGICAL HISTORY Procedure Laterality Date APPENDECTOMY 1992 DELIVERY ONLY , low cervicalX3 DELIVERY ONLY 09/15/13 , low transverse LIG/TRNSXJ FLP TUBE ABDL/VAG APPR UNI/BI 09/15/13 Tubal ligation Family History FAMILY HISTORY Problem Relation Age of Onset Arthritis Mother Arthritis Maternal Grandmother Heart Maternal Grandfather Stroke Maternal Grandfather Cancer Paternal Grandfather BRAIN Patient Allergies ALLERGIES Allergen Reactions Latex Rash Current Medications Current Outpatient Medications on File Prior to Visit Medication Sig Lactobacillus acidophilus (PROBIOTIC ORAL) Take by mouth. MULTIVITAMIN ORAL Take by mouth. phenazopyridine (PYRIDIUM) 200 mg tablet Take 1 tablet by mouth three times daily as needed. (Patient not taking: Reported on 07/15/2022) No current facility-administered medications on file prior to visit. Social History Social History Tobacco Use Smoking status: Never Smokeless tobacco: Never Vaping Use Vaping Use: Never used Substance Use Topics Alcohol use: No Drug use: No Review of Symptoms REVIEW OF SYSTEMS See HPI, otherwise negative EXAM: BP 104/62 (BP Site: Left Arm, BP Position: Sitting, BP Cuff Size: Regular Adult) Pulse 99 Resp 16 Wt 73.6 kg (162 lb 3.2 oz) LMP 06/09/2022 (Within Days) SpO2 99% BMI 27.84 kg/m General Appearance: Well appearing, alert, in no acute distress, well-hydrated, well nourished.. Lungs: Lungs clear to auscultation. No wheezing, rhonchi, rales.. Heart: RRR without murmur, gallop, or rubs. No ectopy. Abdomen: Normal abdominal exam, Abdomen soft, non-tender. Bowel sounds normal. No masses, organomegaly. Pelvic: External genitalia Normal and vagina normal., Bimanual exam normal. No vulvar lesions, normal discharge, well estrogenized, cervical lesion polyp noted to be pink-previously assessed by DIRECTOR STERILE PROCESSING and found to be benign Health Maintenance List HEPATITIS B(1 of 3 - 3-dose series) Never done COVID-19 VACCINE(1) Never done HEPATITIS C SCREENING Never done HIV SCREENING Never done MAMMOGRAM Never done INFLUENZA(1) Never done DEPRESSION ASSESSMENT Never done DTAP,TDAP,TD(2 - Td or Tdap) due on 07/26/2023 PAP TESTING due on 11/13/2024 HPV TESTING due on 11/13/2024 Data reviewed Previous records, office notes ASSESSMENT/PLAN: 1. Burning with urination - ICD9: 788.1, ICD10: R30.0 (primary diagnosis) Complete PAP exam today, no abnormal visual findings. UA with trace blood. Difficulty correctly diagnosing and treating patient as she has been seen so many different places, told different things, given multiple tx. Does have urology appointment scheduled next month on 08/03. Cervical samples to r/o other possible causes. Questioning possible IC. Negative abdominal/pelvic CT at [facility]. Pelvic ultrasound ordered today. - UA DIP, URINE (POC) - PAP TEST - T VAGINALIS AMPLIFICATION - GC/CHLAMYDIA AMPLIF, URINE - URINE CULTURE - NANCY / TRICHOMONAS AMPLIFICATION - BACTERIAL VAGINOSIS AMPLIFICATION - HCG QUAL UR B/O - US FEMALE PELVIS TRANSABD LTD - US FEMALE PELVIS TRANSVAG - GC/CHLAMYDIA DNA DET 2. Vaginal discharge - ICD9: 623.5, ICD10: N89.8 Complete PAP exam today, no abnormal visual findings. UA with trace blood. Difficulty correctly diagnosing and treating patient as she has been seen so many different places, told different things, given multiple tx. Does have urology appointment scheduled next month on 08/03. Cervical samples to r/o other possible causes. Questioning possible IC. Negative abdominal/pelvic CT at [facility]. Pelvic ultrasound ordered today. - UA DIP, URINE (POC) - PAP TEST - T VAGINALIS AMPLIFICATION - GC/CHLAMYDIA AMPLIF, URINE - URINE CULTURE - NANCY / TRICHOMONAS AMPLIFICATION - BACTERIAL VAGINOSIS AMPLIFICATION - HCG QUAL UR B/O - US FEMALE PELVIS TRANSABD LTD - US FEMALE PELVIS TRANSVAG - GC/CHLAMYDIA DNA DET 3. Pelvic pain - ICD9: [id number], ICD10: R10.2 Complete PAP exam today, no abnormal visual findings. UA with trace blood. Difficulty correctly diagnosing and treating patient as she has been seen so many different places, told different things, given multiple tx. Does have urology appointment scheduled next month on 08/03. Cervical samples to r/o other possible causes. Questioning possible IC. Negative abdominal/pelvic CT at [facility]. Pelvic ultrasound ordered today. - UA DIP, URINE (POC) - PAP TEST - T VAGINALIS AMPLIFICATION - GC/CHLAMYDIA AMPLIF, URINE - URINE CULTURE - NANCY / TRICHOMONAS AMPLIFICATION - BACTERIAL VAGINOSIS AMPLIFICATION - HCG QUAL UR B/O - US FEMALE PELVIS TRANSABD LTD - US FEMALE PELVIS TRANSVAG - GC/CHLAMYDIA DNA DET 4. Recurrent UTI (urinary tract infection) - ICD9: 599.0, ICD10: N39.0 Complete PAP exam today, no abnormal visual findings. UA with trace blood. Difficulty correctly diagnosing and treating patient as she has been seen so many different places, told different things, given multiple tx. Does have urology appointment scheduled next month on 08/03. Cervical samples to r/o other possible causes. Questioning possible IC. Negative abdominal/pelvic CT at [facility]. Pelvic ultrasound ordered today. - UA DIP, URINE (POC) - PAP TEST - T VAGINALIS AMPLIFICATION - GC/CHLAMYDIA AMPLIF, URINE - URINE CULTURE - NANCY / TRICHOMONAS AMPLIFICATION - BACTERIAL VAGINOSIS AMPLIFICATION - HCG QUAL UR B/O - US FEMALE PELVIS TRANSABD LTD - US FEMALE PELVIS TRANSVAG - GC/CHLAMYDIA DNA DET Rosina Jones APRN.LYN documented in this encounter [facility] 07-13-2022 Miscellaneous Notes Agree with below. I would like to do a vaginal exam at this appointment as well to r/o other contributing causes. Rosina Jones APRN.CNP Pt informed, verbalized understanding. Pt reports sx of slight burning & discharge. Asking if it could be a UTI or yeast infection. Advised express care or appt. Pt wanted seen on 07/15. Also advised to let urology know she is symptomatic to see if she can get a soon appt. Yamel Gorman Consult placed. Rosina Jones APRN.CNP Pt called and would like the referral to Urology regarding UTIs. Please fax referral and support information to Dr. De La Vega and let pt know when this has been done so she can get an apt booked. Tiesha Urias LPN documented in this encounter [facility] 06-25-2022 Miscellaneous Notes I don't know if it is yeast without an examination. Is she having any discharge or itching in her vaginal area. Rosina Jones APRN.CNP Pt informed, verbalized understanding. Pt asking if provider thinks it's yeast? Yamel Gorman Addended by: ROSINA JONES on: 06/25/2022 12:57 PM Modules accepted: Orders The following approved medication requests have been transmitted electronically. Requested Prescriptions Signed Prescriptions Disp Refills ciprofloxacin HCl (CIPRO) 500 mg tablet 14 tablet 0 Sig: Take 1 tablet by mouth twice daily for 7 days. Authorizing Provider: SIMA IRVING Ordering User: ROSINA JONES APRN.CNP Patient calling back and said that she feels sizzling when she voids and still having frequency. Patient thinks she is not doing as well as thinks she should by this time. Now patient is asking for the rx that she had back in March to be sent to the pharmacy please. She leaves tomorrow for 2 weeks in [place] and thinks she is going to get worse when she is gone. Please advise Patient's notified-Rx went to [facility] and he was aware of this.Yu Lau LPN Left message for patient to return call Yamel Gorman I'm sending in the 2 extra days for her. Please let her know that if she gets any more UTIs, I am going to need her to see a urologist. She should not be having multiple and frequent severe UTIs, so we may need to look into this further. The following approved medication requests have been transmitted electronically. Requested Prescriptions Signed Prescriptions Disp Refills nitrofurantoin monohydrate and macrocrystal (MACROBID) 100 mg capsule 4 capsule 0 Sig: Take 1 capsule by mouth twice daily with meals for 2 days. Authorizing Provider: SIMA IRVING Ordering User: ROSINA JONES APRN.CNP Patient returned call and given provider's message below with verbalized understanding. Patient states she is going on vacation today, would feel better if pcp would send the xtra 4 pills of macrobid to her pharmacy to equal 7 days. Please advise patient. Left message for pt to call back. Gay Nixon MA ----- Message from Sima Irving APRN.SET UP WORKER sent at 06/24/2022 2:34 PM EST ----- Please advise patient: Urine culture did not show any evidence of infection (as we discussed at visit the previous antibiotic may have interfered with accuracy of the urine culture). She may continue to take antibiotic if it has been helpful. Recommend follow up with PCP to ensure hematuria has resolved. Sima Ivring CNP documented in this encounter [facility] 06-24-2022 Miscellaneous Notes Spoke with patient. Given message from provider's office. Patient verbalizes understanding. Adriane Hector RN Yes I only want her on the Macrobid. I can send in the extra 2 days of it, but I would like to hold off on giving more pills until we get the culture results in case we would need to change something up. Rosina Jones APRN.LYN Patient reports she was treated with cephalexin on Wed in for UTI. It wasn't working so went back to [facility] yesterday and prescribed macrobid. Asking if she should be on both AB's? She did stop the cephalexin yesterday, when started the macrobid (ov notes do not say). Please advise patient. Also the macrobid was prescribed 2 pills / day for 5 days. 4 mths ago was treated with macrobid for UTI 2 pills daily for 7 days. Asking if Automotive Shop Foreman thinks she should be on it for 7 days? If yes, please send 4 more pills to [facility] pharmacy in [place]. She is very concerned b/c she is going on vacation for 2 weeks- leaving Wednesday. Would like the culture results as soon as they come in. documented in this encounter [facility] 06-23-2022 Note HNO ID: [id number] Author: Sima Irving APRN.SET UP WORKER Service: ? Author Type: Nurse Practitioner Type: Progress Notes Filed: 06/23/2022 9:54 AM Note Text: Subjective HPI Irma Combs is a 41 year old female who presents with dysuria and frequency, for the past 10 days. [facility] and prescribed cephalexin. A culture was not done. She states the medication does not seem to be working. She has been taking D Mannose also at home. LMP was 2 weeks ago. Review of Systems Constitutional: Negative for chills and fever. Respiratory: Negative. Cardiovascular: Negative. Gastrointestinal: Positive for abdominal pain (suprapubic pressure). Negative for diarrhea, nausea and vomiting. Genitourinary: Positive for dysuria and frequency. Musculoskeletal: Negative for back pain. BP 122/70 Pulse 110 Temp 36.5 ?C (97.7 ?F) Resp 16 Wt 72.1 kg (159 lb) LMP 06/09/2022 (Within Days) SpO2 97% BMI 27.29 kg/m? PAST MEDICAL HISTORY Diagnosis Date Anemia WITH PAST SURGICAL HISTORY Procedure Laterality Date APPENDECTOMY 1992 DELIVERY ONLY , low cervicalX3 DELIVERY ONLY 09/15/13 , low transverse LIG/TRNSXJ FLP TUBE ABDL/VAG APPR UNI/BI 09/15/13 Tubal ligation ALLERGIES Latex MEDICATIONS Lactobacillus acidophilus (PROBIOTIC ORAL) Take by mouth. MULTIVITAMIN ORAL Take by mouth. nitrofurantoin monohydrate and macrocrystal (MACROBID) 100 mg capsule Take 1 capsule by mouth twice daily for 5 days. phenazopyridine (PYRIDIUM) 200 mg tablet Take 1 tablet by mouth three times daily as needed. FAMILY HISTORY Problem Relation Age of Onset Arthritis Mother Arthritis Maternal Grandmother Heart Maternal Grandfather Stroke Maternal Grandfather Cancer Paternal Grandfather BRAIN Social History Tobacco Use Smoking status: Never Smokeless tobacco: Never Vaping Use Vaping Use: Never used Substance Use Topics Alcohol use: No Drug use: No Objective Physical Exam Vitals and nursing note reviewed. Constitutional: General: She is not in acute distress. Appearance: Normal appearance. She is not toxic-appearing. Cardiovascular: Rate and Rhythm: Normal rate and regular rhythm. Heart sounds: Normal heart sounds. Pulmonary: Effort: Pulmonary effort is normal. No respiratory distress. Breath sounds: Normal breath sounds. No wheezing or rales. Abdominal: General: There is no distension. Palpations: Abdomen is soft. There is no mass. Tenderness: There is abdominal tenderness in the suprapubic area. There is no guarding. Skin: General: Skin is warm and dry. Neurological: Mental Status: She is alert. ASSESSMENT/PLAN: 1. Urinary frequency - ICD9: 788.41, ICD10: R35.0 acute - UA positive for hematuria - Send urine for culture - Begin treatment with Macrobid 100 mg BID for 5 days - Patient education for prevention given - UA DIP, URINE (POC) - URINE CULTURE - NITROFURANTOIN MONOHYDRATE AND MACROCRYSTAL 100 MG ORAL CAP - PHENAZOPYRIDINE 200 MG TABLET - Follow-up with your PCP in 3-5 days if symptoms have not improved or sooner if symptoms worsen - Discussed red flags and need for immediate medical evaluation if any occur. - Discussed supportive care treatment with fluids, rest and analgesia. - Discussed expected course of illness Sima Irving APRN.[facility] 06-23-2022 History of Presen t illness Narrative Subjective HPI Irma Combs is a 41 year old female who presents with dysuria and frequency, for the past 10 days. Was seen at the [facility] clinic on 06/19 and prescribed cephalexin. A culture was not done. She states the medication does not seem to be working. She has been taking D Mannose also at home. LMP was 2 weeks ago. Review of Systems Constitutional: Negative for chills and fever. Respiratory: Negative. Cardiovascular: Negative. Gastrointestinal: Positive for abdominal pain (suprapubic pressure). Negative for diarrhea, nausea and vomiting. Genitourinary: Positive for dysuria and frequency. Musculoskeletal: Negative for back pain. BP 122/70 Pulse 110 Temp 36.5 C (97.7 F) Resp 16 Wt 72.1 kg (159 lb) LMP 06/09/2022 (Within Days) SpO2 97% BMI 27.29 kg/m PAST MEDICAL HISTORY Diagnosis Date Anemia WITH PAST SURGICAL HISTORY Procedure Laterality Date APPENDECTOMY 1992 DELIVERY ONLY , low cervicalX3 DELIVERY ONLY 09/15/13 , low transverse LIG/TRNSXJ FLP TUBE ABDL/VAG APPR UNI/BI 09/15/13 Tubal ligation ALLERGIES Latex MEDICATIONS Lactobacillus acidophilus (PROBIOTIC ORAL) Take by mouth. MULTIVITAMIN ORAL Take by mouth. nitrofurantoin monohydrate and macrocrystal (MACROBID) 100 mg capsule Take 1 capsule by mouth twice daily for 5 days. phenazopyridine (PYRIDIUM) 200 mg tablet Take 1 tablet by mouth three times daily as needed. FAMILY HISTORY Problem Relation Age of Onset Arthritis Mother Arthritis Maternal Grandmother Heart Maternal Grandfather Stroke Maternal Grandfather Cancer Paternal Grandfather BRAIN Social History Tobacco Use Smoking status: Never Smokeless tobacco: Never Vaping Use Vaping Use: Never used Substance Use Topics Alcohol use: No Drug use: No Objective Physical Exam Vitals and nursing note reviewed. Constitutional: General: She is not in acute distress. Appearance: Normal appearance. She is not toxic-appearing. Cardiovascular: Rate and Rhythm: Normal rate and regular rhythm. Heart sounds: Normal heart sounds. Pulmonary: Effort: Pulmonary effort is normal. No respiratory distress. Breath sounds: Normal breath sounds. No wheezing or rales. Abdominal: General: There is no distension. Palpations: Abdomen is soft. There is no mass. Tenderness: There is abdominal tenderness in the suprapubic area. There is no guarding. Skin: General: Skin is warm and dry. Neurological: Mental Status: She is alert. ASSESSMENT/PLAN: 1. Urinary frequency - ICD9: 788.41, ICD10: R35.0 acute - UA positive for hematuria - Send urine for culture - Begin treatment with Macrobid 100 mg BID for 5 days - Patient education for prevention given - UA DIP, URINE (POC) - URINE CULTURE - NITROFURANTOIN MONOHYDRATE & MACROCRYSTAL 100 MG ORAL CAP - PHENAZOPYRIDINE 200 MG TABLET - Follow-up with your PCP in 3-5 days if symptoms have not improved or sooner if symptoms worsen - Discussed red flags and need for immediate medical evaluation if any occur. - Discussed supportive care treatment with fluids, rest and analgesia. - Discussed expected course of illness Sima Irving APRN.LYN documented in this encounter [facility] 06-23-2022 Instructions Sima Irving APRN.LYN - 06/23/2022 9:43 AM EST ASSESSMENT/PLAN: 1. Urinary frequency - ICD9: 788.41, ICD10: R35.0 acute - UA positive for hematuria - Send urine for culture - Begin treatment with Macrobid 100 mg BID for 5 days - Patient education for prevention given - UA DIP, URINE (POC) - URINE CULTURE - NITROFURANTOIN MONOHYDRATE & MACROCRYSTAL 100 MG ORAL CAP - PHENAZOPYRIDINE 200 MG TABLET - Follow-up with your PCP in 3-5 days if symptoms have not improved or sooner if symptoms worsen - Discussed red flags and need for immediate medical evaluation if any occur. - Discussed supportive care treatment with fluids, rest and analgesia. - Discussed expected course of illness Sima Irving APRN.CNP [facility] PATIENT INFO BLADDER INFECTION OVERVIEW Bladder infections are one of the most common infections, causing symptoms of burning with urination and needing to urinate frequently. A bladder infection is a type of urinary tract infection (UTI). Bladder infections are more common is women than men. Most women have an uncomplicated bladder infection that is easily treated with a short course of antibiotics. In men, bladder infections may also affect the prostate gland, and a longer course of treatment may be needed. BLADDER INFECTION CAUSES The urinary tract includes the kidneys (which filter urine), ureters (the tube that carries urine from the kidneys to the bladder), the bladder (which stores urine), and urethra (the tube that carries urine out of the bladder). Bacteria do not normally live in these areas. However, bacteria normally live close to the urethra in women and men who are not circumcised. Bladder infections occur when bacteria travel up the urethra into the bladder. Factors that increase the risk of developing a bladder infection include: Vaginal sex Use of spermicides History of past bladder infections Diabetes In men, not being circumcised or having anal sex increase the risk of bladder infections. BLADDER INFECTION SYMPTOMS The typical symptoms of a bladder infection include: Pain or burning when urinating Frequent need to urinate Urgent need to urinate Blood in the urine Fever, back pain, nausea, or vomiting are not common symptoms of a bladder infection, but can occur in people with a kidney infection (pyelonephritis). If you have these symptoms, you should call your doctor or nurse immediately. Is it a bladder infection or something else? -- Burning with urination can also occur in people with vaginitis (eg, yeast infection) or urethritis (inflammation of the urethra). For this reason, it is important to call your healthcare provider before assuming you have a bladder infection. BLADDER INFECTION DIAGNOSIS Simple bladder infections are usually diagnosed based upon your symptoms alone. However, most patients, especially those who have bladder infection symptoms for the first time, should see a healthcare provider for urine testing. Urine culture -- A urine culture is a test that uses a sample of urine to try and grow bacteria in a laboratory. It usually requires about 48 hours to get results. However, a urine culture is not always required to diagnose a bladder infection. Urine culture is often recommended if: You have never had a bladder infection before You have symptoms that are not typical for bladder infection You have had resistant bladder infections before You have frequent bladder infections You do not begin to feel better within 24 to 48 hours after starting antibiotics You are BLADDER INFECTION TREATMENT Bladder infection -- In young, healthy adolescents and adults with a bladder infection, the usual treatment includes a three to seven day course of antibiotics. The typical drugs chosen are: trimethoprim-sulfamethoxazole (Bactrim ), nitrofurantoin (Macrobid ), ciprofloxacin (Cipro ) or levofloxacin (Levaquin ). In men, the infection may involve your prostate gland and treatment is usually given for at least 7 days. Your symptoms should begin to resolve within one day after starting treatment. It is important to take the full course of antibiotics to completely eliminate the infection. If your symptoms persist for more than two or three days after starting treatment, call your healthcare provider. If needed, you can take a prescription medication that numbs the bladder and urethra (phenazopyridine [Pyridium ]) to reduce the burning pain of some UTIs. A similar medication is available without a prescription (eg, Uristat). Both medications change the color of the urine (usually blue or orange) and can interfere with laboratory testing. You should not take these medications for more than 48 hours due to the risk of side effects. These medications do not treat the infection and must be taken along with an antibiotic. Some providers recommend drinking more fluids while treating bladder infections to help flush bacteria from the bladder. Others believe that drinking more fluids may dilute the antibiotic in the bladder and make the medication less effective. No studies have been performed to address this issue. There are also no good studies on the effectiveness of cranberry juice for treating a bladder infection; we do not recommend using cranberry juice to treat bladder infections. Follow-up care -- Follow-up testing is not needed in healthy, young men or women with a bladder infection if symptoms resolve. women are usually asked to have a repeat urine culture one to two weeks after treatment has ended to make sure the bacteria are no longer in the urine. RECURRENT BLADDER INFECTIONS Bladder infections versus other causes -- Some adults, especially women, develop bladder infections frequently. In this case, it is important to confirm that your symptoms (eg, pain or burning, frequency, and urgency) are caused by a bladder infection. Symptoms are usually similar from one infection to another. The best way to confirm an infection is to have a urine culture. If your urine culture is negative for infection, other causes of pain, burning, and frequency should be investigated. There is no reason to take antibiotics if your urine culture is negative. Need for further testing -- If you continue to develop bladder infections, you may require further testing. If you continue to notice blood in your urine after your bladder infection has cleared, you should have further testing. Preventing recurrent UTIs -- Women with recurrent urinary tract infections may be advised to take steps to prevent bladder infections, including one or more of the following: Changes in control -- Women who develop frequent bladder infections and use spermicides, particularly those who also use a diaphragm, may be encouraged to use an alternate method of control. Cranberry products -- Taking cranberry juice or cranberry tablets has been promoted as one way to help prevent frequent bladder infections. However, this has not been proven. Drinking more fluid and urinating after intercourse -- Although studies have not proven that drinking more fluids or urinating soon after intercourse can prevent infection, some healthcare providers recommend these measures since they are not harmful. Drinking more fluid may help to wash out bacteria that enter the bladder. Postmenopausal women -- Postmenopausal women who develop recurrent bladder infections may benefit from using vaginal estrogen. Vaginal estrogen is available in a flexible ring that is worn in the vagina for three months (eg, Estring ), a small tablet (Vagifem ), or a cream (eg, Premarin or Estrace ). Vaginal estrogen is discussed in more detail in a separate topic review. Antibiotics -- A preventive antibiotic treatment may be recommended if you repeatedly develop bladder infections and have not responded to other preventive measures. Antibiotics are highly effective in preventing recurrent bladder infections and can be taken in several different ways. Preventive antibiotic -- You can take a low dose of an antibiotic once per day or three times per week for six months to several years. Antibiotics following intercourse -- In women who develop urinary tract infections after sex, taking a single low dose antibiotic after intercourse can help to prevent bladder infections. Self-treatment -- A plan to begin antibiotics at the first sign of a bladder infection may be recommended in some situations. Before starting this regimen, it is important that you have had testing (urine cultures) to confirm that your symptoms are caused by a bladder infection; some people have symptoms of a bladder infection but do not actually have an infection. documented in this encounter [facility] 06-23-2022 Miscellaneous Notes Patient calling to check status of message. 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 Advised if still having worse UTI symptoms to go to express care for evaluation since financial clearance she has is for there. Concerned going to 2 week vacation starting Wednesday. Told to come in early today so urine test could be sent for culture and results come back before Wednesday.Patient said she would do that. Pt called and she [facility] on Wednesday06-19-22. She has a UTI and was given medication Cephalexin for 10 days taking 1 twice a day. She is on day 5 . Pt is concerned usually by now it should be getting better and today she is feeling worse. The pain she has is going but she is still having urgency, frequency and burning. Pt is to leave for vacation x 2 weeks on Wednesday and wants to make sure this is better. Declined an apt in and wanted message to be sent to you for review. Please advise pt. Tiesha Urias LPN documented in this encounter [facility] 05-26-2022 Note HNO ID: [id number] Author: Deon Fisher APRN.SET UP WORKER Service: ? Author Type: Nurse Practitioner Type: Progress Notes Filed: 05/26/2022 8:58 AM Note Text: Subjective HPI HPI Irma Combs is a 41 year old female who presents today for CC of urinary urgency, frequency, burning. This started 1 day ago. Has tried nothing for relief. Symptoms are worsened by nothing. Risk factors hx of multiple recent uti's. Denies possibility of being . .Patient presents with: Urinary Frequency: burning with urination x last night PAST MEDICAL HISTORY Diagnosis Date Anemia WITH PAST SURGICAL HISTORY Procedure Laterality Date APPENDECTOMY 1992 DELIVERY ONLY , low cervicalX3 DELIVERY ONLY 09/15/13 , low transverse LIG/TRNSXJ FLP TUBE ABDL/VAG APPR UNI/BI 09/15/13 Tubal ligation ALLERGIES Latex MEDICATIONS Lactobacillus acidophilus (PROBIOTIC ORAL) Take by mouth. MULTIVITAMIN ORAL Take by mouth. nitrofurantoin monohydrate and macrocrystal (MACROBID) 100 mg capsule Take 1 capsule by mouth twice daily for 7 days. FAMILY HISTORY Problem Relation Age of Onset Arthritis Mother Arthritis Maternal Grandmother Heart Maternal Grandfather Stroke Maternal Grandfather Cancer Paternal Grandfather BRAIN Social History Tobacco Use Smoking status: Never Smokeless tobacco: Never Vaping Use Vaping Use: Never used Substance Use Topics Alcohol use: No Drug use: No Review of Systems Constitutional: Negative for chills, fever and weight loss. Respiratory: Negative for cough, shortness of breath and wheezing. Cardiovascular: Negative for chest pain and palpitations. Gastrointestinal: Negative for abdominal pain, blood in stool, constipation, diarrhea, heartburn, melena, nausea and vomiting. Genitourinary: Positive for dysuria, frequency and urgency. Negative for flank pain and hematuria. Musculoskeletal: Negative for myalgias. Objective Blood pressure 102/66, pulse 88, temperature 36.4 ?C (97.6 ?F), resp. rate 16, weight 72.6 kg (160 lb), last menstrual period 10/23/2019, SpO2 98 %. Physical Exam Constitutional: General: She is not in acute distress. Appearance: Normal appearance. She is not toxic-appearing. Cardiovascular: Rate and Rhythm: Normal rate and regular rhythm. Heart sounds: Normal heart sounds. Pulmonary: Effort: Pulmonary effort is normal. Breath sounds: Normal breath sounds. Abdominal: General: Bowel sounds are normal. Palpations: Abdomen is soft. Tenderness: There is no abdominal tenderness. Skin: General: Skin is warm and dry. ASSESSMENT/PLAN: 1. Urinary frequency - ICD9: 788.41, ICD10: R35.0 acute - UA positive for hernandez esterase, hematuria, and proteinuria - Send urine for culture - Begin treatment with Macrobid 100 mg BID for 7 days - UA DIP, URINE (POC) - URINE CULTURE - NITROFURANTOIN MONOHYDRATE AND MACROCRYSTAL 100 MG ORAL CAP Deon Fisher APRN.SET UP WORKER [facility] 05-26-2022 History of Presen t illness Narrative Subjective HPI HPI Irma Combs is a 41 year old female who presents today for CC of urinary urgency, frequency, burning. This started 1 day ago. Has tried nothing for relief. Symptoms are worsened by nothing. Risk factors hx of multiple recent uti's. Denies possibility of being . .Patient presents with: Urinary Frequency: burning with urination x last night PAST MEDICAL HISTORY Diagnosis Date Anemia WITH PAST SURGICAL HISTORY Procedure Laterality Date APPENDECTOMY 1992 DELIVERY ONLY , low cervicalX3 DELIVERY ONLY 09/15/13 , low transverse LIG/TRNSXJ FLP TUBE ABDL/VAG APPR UNI/BI 09/15/13 Tubal ligation ALLERGIES Latex MEDICATIONS Lactobacillus acidophilus (PROBIOTIC ORAL) Take by mouth. MULTIVITAMIN ORAL Take by mouth. nitrofurantoin monohydrate and macrocrystal (MACROBID) 100 mg capsule Take 1 capsule by mouth twice daily for 7 days. FAMILY HISTORY Problem Relation Age of Onset Arthritis Mother Arthritis Maternal Grandmother Heart Maternal Grandfather Stroke Maternal Grandfather Cancer Paternal Grandfather BRAIN Social History Tobacco Use Smoking status: Never Smokeless tobacco: Never Vaping Use Vaping Use: Never used Substance Use Topics Alcohol use: No Drug use: No Review of Systems Constitutional: Negative for chills, fever and weight loss. Respiratory: Negative for cough, shortness of breath and wheezing. Cardiovascular: Negative for chest pain and palpitations. Gastrointestinal: Negative for abdominal pain, blood in stool, constipation, diarrhea, heartburn, melena, nausea and vomiting. Genitourinary: Positive for dysuria, frequency and urgency. Negative for flank pain and hematuria. Musculoskeletal: Negative for myalgias. Objective Blood pressure 102/66, pulse 88, temperature 36.4 C (97.6 F), resp. rate 16, weight 72.6 kg (160 lb), last menstrual period 10/23/2019, SpO2 98 %. Physical Exam Constitutional: General: She is not in acute distress. Appearance: Normal appearance. She is not toxic-appearing. Cardiovascular: Rate and Rhythm: Normal rate and regular rhythm. Heart sounds: Normal heart sounds. Pulmonary: Effort: Pulmonary effort is normal. Breath sounds: Normal breath sounds. Abdominal: General: Bowel sounds are normal. Palpations: Abdomen is soft. Tenderness: There is no abdominal tenderness. Skin: General: Skin is warm and dry. ASSESSMENT/PLAN: 1. Urinary frequency - ICD9: 788.41, ICD10: R35.0 acute - UA positive for hernandez esterase, hematuria, and proteinuria - Send urine for culture - Begin treatment with Macrobid 100 mg BID for 7 days - UA DIP, URINE (POC) - URINE CULTURE - NITROFURANTOIN MONOHYDRATE & MACROCRYSTAL 100 MG ORAL CAP Deon Fisher APRN.SET UP WORKER documented in this encounter [facility] 05-11-2022 Miscellaneous Notes Appt canceled. Puja Salamanca LPN Pt. called in. States boil is improving greatly. Pt would like to cancel appt. today. States drainage has a pink tint, still seeping, mildly red around outer edge. Pain has resolved. Pt. took last antibiotic this morning (states she took 7 days of antibiotics). If Dr. Power would still like to see pt, please call her and advise. Pt uses [facility] in [place]. Rossy Sewell RN documented in this encounter [facility] 05-04-2022 Note HNO ID: [id number] Author: Rashard Mohr APRN.SET UP WORKER Service: ? Author Type: Nurse Practitioner Type: Progress Notes Filed: 05/04/2022 5:15 PM Note Text: Subjective HPI Nontoxic-appearing female presents urgent care chief complaint red area and inner thigh. Duration of symptom 1 week. Associated symptoms red area and inner thigh. Patient states she had a lump that she noticed in the summer that was not painful. Presents today with increasing pain and redness swelling for the past week. States stuck a needle in the area was only able to retrieve the clear fluid. No purulent drainage was retrieved. Presents today for evaluation. Denies any systemic symptoms. Denies any significant pain. States increased pain if he pushes over the area. Denies any chance of . Is not breast-feeding. Denies any fever body aches chills productive cough chest pain shortness of breath pleuritic pain hemoptysis nausea vomiting abdominal pain change in bowel or bladder habits. Past medical history prescription medication use and allergies reviewed. .Patient presents with: Derm Problem: Sore on L inner thigh x1 week PAST MEDICAL HISTORY Diagnosis Date Anemia WITH PAST SURGICAL HISTORY Procedure Laterality Date APPENDECTOMY 1992 DELIVERY ONLY , low cervicalX3 DELIVERY ONLY 09/15/13 , low transverse LIG/TRNSXJ FLP TUBE ABDL/VAG APPR UNI/BI 09/15/13 Tubal ligation ALLERGIES Latex MEDICATIONS cephALEXin (KEFLEX) 500 mg capsule Take 1 capsule by mouth three times daily for 7 days. Lactobacillus acidophilus (PROBIOTIC ORAL) Take by mouth. MULTIVITAMIN ORAL Take by mouth. FAMILY HISTORY Problem Relation Age of Onset Arthritis Mother Arthritis Maternal Grandmother Heart Maternal Grandfather Stroke Maternal Grandfather Cancer Paternal Grandfather BRAIN Social History Tobacco Use Smoking status: Never Smokeless tobacco: Never Vaping Use Vaping Use: Never used Substance Use Topics Alcohol use: No Drug use: No BP 120/76 Pulse 84 Temp 36.3 ?C (97.4 ?F) Resp 18 Wt 73.1 kg (161 lb 3.2 oz) LMP 10/23/2019 (Within Days) SpO2 100% BMI 27.67 kg/m? Review of Systems Constitutional: Negative for chills, fever and malaise/fatigue. HENT: Negative for congestion, ear discharge, ear pain, sinus pain and sore throat. Eyes: Negative for blurred vision, pain, discharge and redness. Respiratory: Negative for cough, hemoptysis, sputum production, shortness of breath, wheezing and stridor. Cardiovascular: Negative for chest pain. Gastrointestinal: Negative for abdominal pain, diarrhea, nausea and vomiting. Musculoskeletal: Negative for myalgias. Skin: Negative for itching and rash. Neurological: Negative for dizziness and headaches. Objective Physical Exam Constitutional: General: She is not in acute distress. Appearance: She is not diaphoretic. HENT: Head: Normocephalic. Mouth/Throat: Mouth: Mucous membranes are moist. Pharynx: Oropharynx is clear. No oropharyngeal exudate or posterior oropharyngeal erythema. Eyes: Conjunctiva/sclera: Conjunctivae normal. Pupils: Pupils are equal, round, and reactive to light. Cardiovascular: Rate and Rhythm: Normal rate and regular rhythm. Heart sounds: Normal heart sounds. Pulmonary: Effort: Pulmonary effort is normal. No tachypnea, accessory muscle usage or respiratory distress. Breath sounds: Normal breath sounds. No stridor. Abdominal: General: There is no distension. Palpations: Abdomen is soft. Tenderness: There is no abdominal tenderness. There is no guarding or rebound. Musculoskeletal: Cervical back: Normal range of motion and neck supple. No rigidity or tenderness. Lymphadenopathy: Cervical: No cervical adenopathy. Skin: General: Skin is warm and dry. Comments: A 8 cm x 8 cm area of redness noted. A 2 cm x 2 cm area of induration and center redness noted. No fluctuance. No remote redness. No adenopathy. No drainage. Neurological: Mental Status: She is alert and oriented to person, place, and time. ASSESSMENT/PLAN: 1. Cellulitis of skin - ICD9: 682.9, ICD10: L03.90 Patient diagnosed with cellulitis. Placed on Keflex. No evidence of remote redness. No evidence of drainage. No evidence of fluctuance or abscess formation at this time. We will follow-up with general surgery. Referral placed. Patient was educated on supportive therapies. Patient will follow up with primary care provider as needed. Patient was instructed to immediately proceed to emergency room for any new, worsening, or symptoms lasting longer than anticipated. The patient's clinical presentation is otherwise unremarkable at this time. Based on exam and clinical finding, the patient is stable for discharge. Plan of care was discussed with patient. Patient verbalizes understanding and agrees to plan of care. This note was generated using (more content not included)... [facility] 04-17-2022 Miscellaneous Notes Patient notified of provider's response and that prescription was sent. Patient notified of instructions. Patient voiced understanding. Nya Cox RN She very likely has a vaginal yeast infection. I'm sending in Diflucan that she will take one tablet today and then can repeat in 3 days if needed. If her sx persist, I need to see her again next week for assessment. Rosina Jones APRN.LYN Patient states that she is still having burning but not when she urinates. Patient feels the burning at all times. Patient was on 2 antibiotics for UTI and had culture done on 04/13/2022 at [facility]. Patient asking what this could be? Please review and advise, Nya Cox RN documented in this encounter [facility] 04-13-2022 Note HNO ID: [id number] Author: January Lance APRN.CNP Service: ? Author Type: Nurse Practitioner Type: Progress Notes Filed: 04/13/2022 6:32 PM Note Text: Subjective The history is provided by the patient. No speech/language therapist was used. HPI Irma Combs is a 41 year old female who presents today for CC of lower abdominal pressure and discomfort after voiding. She also is near to starting period, noted some blood in urine. She has used no treatment or medications. She was treated on 04.01.2022 by Aminah Jones for UTI - culture that grew sensitive to antibiotic she was placed on. Denies any fever, chills, body aches, or vomiting. BP 120/80 Pulse 80 Temp 36.2 ?C (97.2 ?F) Resp 20 Wt 74.2 kg (163 lb 9.6 oz) LMP 10/23/2019 (Within Days) SpO2 98% BMI 28.08 kg/m? Social History Tobacco Use Smoking status: Never Smokeless tobacco: Never Vaping Use Vaping Use: Never used Substance Use Topics Alcohol use: No Drug use: No PAST MEDICAL HISTORY Diagnosis Date Anemia WITH I have confirmed and edited as necessary, the [facility] Review of Systems Constitutional: Negative for chills and fever. Gastrointestinal: Negative for abdominal pain. Genitourinary: Positive for dysuria. Negative for flank pain, frequency, hematuria and urgency. Objective Physical Exam Vitals and nursing note reviewed. Constitutional: Appearance: Normal appearance. Abdominal: General: Bowel sounds are normal. There is no abdominal bruit. Palpations: Abdomen is not rigid. There is no mass or pulsatile mass. Tenderness: There is no abdominal tenderness. There is no guarding or rebound. Negative signs include Bryson's sign and McBurney's sign. Neurological: Mental Status: She is alert and oriented to person, place, and time. Psychiatric: Mood and Affect: Affect normal. ASSESSMENT/PLAN: 1. Burning with urination - ICD9: 788.1, ICD10: R30.0 acute - UA positive for hematuria - Will send urine for culture and treat if indicated based on culture results. - AZO, tylenol, increase hydration - Call is symptoms change - Patient education for prevention given - UA DIP, URINE (POC) Diagnosis and treatment plan were discussed and questions were answered to the patient's satisfaction. Pt acknowledged understanding of concepts and follow up plan. Specific signs and symptoms that would indicate the need for higher level of care were discussed in detail warranting prompt ER evaluation. January Lance APRN.CNP [facility] 04-13-2022 Instructions January Lance APRN.CNP - 04/13/2022 6:31 PM EST - Will send urine for culture and treat if indicated based on culture results. - AZO, tylenol, increase hydration - Call is symptoms change documented in this encounter [facility] 04-13-2022 History of Presen t illness Narrative Subjective The history is provided by the patient. No speech/language therapist was used. HPI Irma Combs is a 41 year old female who presents today for CC of lower abdominal pressure and discomfort after voiding. She also is near to starting period, noted some blood in urine. She has used no treatment or medications. She was treated on 04.01.2022 by Aminah Jones for UTI - culture that grew sensitive to antibiotic she was placed on. Denies any fever, chills, body aches, or vomiting. BP 120/80 Pulse 80 Temp 36.2 C (97.2 F) Resp 20 Wt 74.2 kg (163 lb 9.6 oz) LMP 10/23/2019 (Within Days) SpO2 98% BMI 28.08 kg/m Social History Tobacco Use Smoking status: Never Smokeless tobacco: Never Vaping Use Vaping Use: Never used Substance Use Topics Alcohol use: No Drug use: No PAST MEDICAL HISTORY Diagnosis Date Anemia WITH I have confirmed and edited as necessary, the [facility] Review of Systems Constitutional: Negative for chills and fever. Gastrointestinal: Negative for abdominal pain. Genitourinary: Positive for dysuria. Negative for flank pain, frequency, hematuria and urgency. Objective Physical Exam Vitals and nursing note reviewed. Constitutional: Appearance: Normal appearance. Abdominal: General: Bowel sounds are normal. There is no abdominal bruit. Palpations: Abdomen is not rigid. There is no mass or pulsatile mass. Tenderness: There is no abdominal tenderness. There is no guarding or rebound. Negative signs include Bryson's sign and McBurney's sign. Neurological: Mental Status: She is alert and oriented to person, place, and time. Psychiatric: Mood and Affect: Affect normal. ASSESSMENT/PLAN: 1. Burning with urination - ICD9: 788.1, ICD10: R30.0 acute - UA positive for hematuria - Will send urine for culture and treat if indicated based on culture results. - AZO, tylenol, increase hydration - Call is symptoms change - Patient education for prevention given - UA DIP, URINE (POC) Diagnosis and treatment plan were discussed and questions were answered to the patient's satisfaction. Pt acknowledged understanding of concepts and follow up plan. Specific signs and symptoms that would indicate the need for higher level of care were discussed in detail warranting prompt ER evaluation. January Natalio, CLIN NURSE.SET UP WORKER documented in this encounter [facility] 04-06-2022 Miscellaneous Notes Patient calls and notified of results and providers instructions. Patient verbalizes understanding. Angelic Miller RN left for patient to call PCP office for message below. Skye Morrison RN Please let Irma know that I received her urine culture results. There were two different bacteria isolated in her sample. The Macrobid antibiotic I gave her will take care of one of the bacteria, but not the other. I'm sending in another antibiotic, Cipro, that she will need to take for a week. The following approved medication requests have been transmitted electronically. Requested Prescriptions Signed Prescriptions Disp Refills ciprofloxacin HCl (CIPRO) 500 mg tablet 14 tablet 0 Sig: Take 1 tablet by mouth twice daily for 7 days. Authorizing Provider: ROSINA JONES APRN.CNP documented in this encounter [facility] 04-01-2022 Note HNO ID: [id number] Author: Rosina Jones APRN.CNP Service: ? Author Type: Nurse Practitioner Type: Progress Notes Filed: 04/03/2022 3:47 PM Note Text: Chief Complaint Patient presents with: Lump: Right shoulder, started with bursitis in the right arm x 4 months UTI: Burning AND frequency HPI Irma Combs is a 41 year old female who presents here today for Above Complaints.. Today: Woke up this morning with burning with urination and frequency or urination. Feels likely blood in urine as it is darkish to red in color. Has never had UTI before. No fever, nausea, or vomiting. Small lump to right shoulder. Is soft and moveable. Doesn't really hurt. Unsure how long it has been present-likely 4 months. Past medical history, appointments, medications, allergies reviewed. Previous Medical History PAST MEDICAL HISTORY Diagnosis Date Anemia WITH Previous Surgical History PAST SURGICAL HISTORY Procedure Laterality Date APPENDECTOMY 1992 DELIVERY ONLY , low cervicalX3 DELIVERY ONLY 09/15/13 , low transverse LIG/TRNSXJ FLP TUBE ABDL/VAG APPR UNI/BI 09/15/13 Tubal ligation Family History FAMILY HISTORY Problem Relation Age of Onset Arthritis Mother Arthritis Maternal Grandmother Heart Maternal Grandfather Stroke Maternal Grandfather Cancer Paternal Grandfather BRAIN Patient Allergies ALLERGIES Allergen Reactions Latex Rash Current Medications Current Outpatient Medications on File Prior to Visit Medication Sig OTC PRODUCT unknown enzymes Lactobacillus acidophilus (PROBIOTIC ORAL) Take by mouth. MULTIVITAMIN ORAL Take by mouth. OTC NUTRITIONAL SUPPLEMENT Tissue and Bone Nutritional Supplement dicyclomine (BENTYL) 10 mg capsule Take 1 capsule by mouth four times daily as needed. (Patient not taking: Reported on 04/01/2022) lansoprazole (PREVACID) 30 mg capsule Take 1 capsule by mouth daily before breakfast. 1/2 hr before meal. (Patient not taking: Reported on 04/01/2022) [id number] TAB TAKE ONE DAILY (Patient not taking: Reported on 04/01/2022) No current facility-administered medications on file prior to visit. Social History Social History Tobacco Use Smoking status: Never Smokeless tobacco: Never Vaping Use Vaping Use: Never used Substance Use Topics Alcohol use: No Drug use: No Review of Symptoms REVIEW OF SYSTEMS See HPI, otherwise negative EXAM: BP 112/70 (BP Site: Left Arm, BP Position: Sitting, BP Cuff Size: Regular Adult) Pulse 86 Temp 36.9 ?C (98.4 ?F) Wt 72.8 kg (160 lb 6.4 oz) LMP 10/23/2019 (Within Days) SpO2 100% BMI 27.53 kg/m? General Appearance: Well appearing, alert, in no acute distress, well-hydrated, well nourished.. Skin: large grape-sized soft moveable nontender mass just over right mid clavicle. Lungs: Lungs clear to auscultation. No wheezing, rhonchi, rales.. Heart: RRR without murmur, gallop, or rubs. No ectopy. Abdomen: Abdomen soft. Bowel sounds normal. No masses, organomegaly. Moderate tenderness to palpation of bilateral lower abdomen. No CVA tenderness Health Maintenance List HEPATITIS B(1 of 3 - 3-dose series) Never done COVID-19 VACCINE(1) Never done HEPATITIS C SCREENING Never done HIV SCREENING Never done MAMMOGRAM Never done DEPRESSION ASSESSMENT Never done INFLUENZA(1) Never done DTAP,TDAP,TD(2 - Td or Tdap) due on 07/26/2023 PAP TESTING due on 11/13/2024 HPV TESTING due on 11/13/2024 Data reviewed Previous records, office notes ASSESSMENT/PLAN: 1. Acute cystitis with hematuria - ICD9: 595.0, ICD10: N30.01 (primary diagnosis) - UA positive for hernandez esterase, hematuria, and proteinuria - Send urine for culture - Patient education for prevention given - UA DIP, URINE (POC) - URINE CULTURE - NITROFURANTOIN MONOHYDRATE AND MACROCRYSTAL 100 MG ORAL CAP 2. Urinary frequency - ICD9: 788.41, ICD10: R35.0 acute - UA positive for hernandez esterase, hematuria, and proteinuria - Send urine for culture - Patient education for prevention given - UA DIP, URINE (POC) - URINE CULTURE - NITROFURANTOIN MONOHYDRATE AND MACROCRYSTAL 100 MG ORAL CAP 3. Burning with urination - ICD9: 788.1, ICD10: R30.0 - UA positive for hernandez esterase, hematuria, and proteinuria - Send urine for culture - Patient education for prevention given - UA DIP, URINE (POC) - URINE CULTURE - NITROFURANTOIN MONOHYDRATE AND MACROCRYSTAL 100 MG ORAL CAP 4. 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 No intervention at this time. Will continue to monitor. Patient will discuss with if he would like her to have an ultrasound completed of the area. Rosina Jones APRN.[facility] 04-01-2022 History of Presen t illness Narrative Chief Complaint Patient presents with: Lump: Right shoulder, started with bursitis in the right arm x 4 months UTI: Burning & frequency HPI Irma Combs is a 41 year old female who presents here today for Above Complaints.. Today: Woke up this morning with burning with urination and frequency or urination. Feels likely blood in urine as it is darkish to red in color. Has never had UTI before. No fever, nausea, or vomiting. Small lump to right shoulder. Is soft and moveable. Doesn't really hurt. Unsure how long it has been present-likely 4 months. Past medical history, appointments, medications, allergies reviewed. Previous Medical History PAST MEDICAL HISTORY Diagnosis Date Anemia WITH Previous Surgical History PAST SURGICAL HISTORY Procedure Laterality Date APPENDECTOMY 1992 DELIVERY ONLY , low cervicalX3 DELIVERY ONLY 09/15/13 , low transverse LIG/TRNSXJ FLP TUBE ABDL/VAG APPR UNI/BI 09/15/13 Tubal ligation Family History FAMILY HISTORY Problem Relation Age of Onset Arthritis Mother Arthritis Maternal Grandmother Heart Maternal Grandfather Stroke Maternal Grandfather Cancer Paternal Grandfather BRAIN Patient Allergies ALLERGIES Allergen Reactions Latex Rash Current Medications Current Outpatient Medications on File Prior to Visit Medication Sig OTC PRODUCT unknown enzymes Lactobacillus acidophilus (PROBIOTIC ORAL) Take by mouth. MULTIVITAMIN ORAL Take by mouth. OTC NUTRITIONAL SUPPLEMENT Tissue and Bone Nutritional Supplement dicyclomine (BENTYL) 10 mg capsule Take 1 capsule by mouth four times daily as needed. (Patient not taking: Reported on 04/01/2022) lansoprazole (PREVACID) 30 mg capsule Take 1 capsule by mouth daily before breakfast. 1/2 hr before meal. (Patient not taking: Reported on 04/01/2022) [id number]-FE-[id number] TAB TAKE ONE DAILY (Patient not taking: Reported on 04/01/2022) No current facility-administered medications on file prior to visit. Social History Social History Tobacco Use Smoking status: Never Smokeless tobacco: Never Vaping Use Vaping Use: Never used Substance Use Topics Alcohol use: No Drug use: No Review of Symptoms REVIEW OF SYSTEMS See HPI, otherwise negative EXAM: BP 112/70 (BP Site: Left Arm, BP Position: Sitting, BP Cuff Size: Regular Adult) Pulse 86 Temp 36.9 C (98.4 F) Wt 72.8 kg (160 lb 6.4 oz) LMP 10/23/2019 (Within Days) SpO2 100% BMI 27.53 kg/m General Appearance: Well appearing, alert, in no acute distress, well-hydrated, well nourished.. Skin: large grape-sized soft moveable nontender mass just over right mid clavicle. Lungs: Lungs clear to auscultation. No wheezing, rhonchi, rales.. Heart: RRR without murmur, gallop, or rubs. No ectopy. Abdomen: Abdomen soft. Bowel sounds normal. No masses, organomegaly. Moderate tenderness to palpation of bilateral lower abdomen. No CVA tenderness Health Maintenance List HEPATITIS B(1 of 3 - 3-dose series) Never done COVID-19 VACCINE(1) Never done HEPATITIS C SCREENING Never done HIV SCREENING Never done MAMMOGRAM Never done DEPRESSION ASSESSMENT Never done INFLUENZA(1) Never done DTAP,TDAP,TD(2 - Td or Tdap) due on 07/26/2023 PAP TESTING due on 11/13/2024 HPV TESTING due on 11/13/2024 Data reviewed Previous records, office notes ASSESSMENT/PLAN: 1. Acute cystitis with hematuria - ICD9: 595.0, ICD10: N30.01 (primary diagnosis) - UA positive for hernandez esterase, hematuria, and proteinuria - Send urine for culture - Patient education for prevention given - UA DIP, URINE (POC) - URINE CULTURE - NITROFURANTOIN MONOHYDRATE & MACROCRYSTAL 100 MG ORAL CAP 2. Urinary frequency - ICD9: 788.41, ICD10: R35.0 acute - UA positive for hernandez esterase, hematuria, and proteinuria - Send urine for culture - Patient education for prevention given - UA DIP, URINE (POC) - URINE CULTURE - NITROFURANTOIN MONOHYDRATE & MACROCRYSTAL 100 MG ORAL CAP 3. Burning with urination - ICD9: 788.1, ICD10: R30.0 - UA positive for hernandez esterase, hematuria, and proteinuria - Send urine for culture - Patient education for prevention given - UA DIP, URINE (POC) - URINE CULTURE - NITROFURANTOIN MONOHYDRATE & MACROCRYSTAL 100 MG ORAL CAP 4. 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 No intervention at this time. Will continue to monitor. Patient will discuss with if he would like her to have an ultrasound completed of the area. Rosina Jones APRN.SET UP WORKER documented in this encounter [facility] 10-15-2021 Note Patient Outreach (IN [facility]) IRMA COMBS ([id number]) 1980 F Date Time Provider Department 10/15/21 ROSINA JONES During your visit today, we recorded the following information about you: Allergies As of Date: 10/15/2021 Noted Allergy Reaction LATEX 03/27/2013 2 - Rash Date Reviewed: 01/12/2020 Reviewed by: Lashonda MezaPeerMe) Rachael Loya - Partially Assessed Visit Diagnosis:Encounter for screening mammogram for breast cancer [Z12.31] Order(s):[facility] SCREENING [[id number]] Order #: [id number] FUTURE Prescriptions as of 10/20/2021 - dicyclomine (BENTYL) 10 mg capsule Take 1 capsule by mouth four times daily as needed. - lansoprazole (PREVACID) 30 mg capsule Take 1 capsule by mouth daily before breakfast. 1/2 hr before meal. - OTC PRODUCT unknown enzymes - Lactobacillus acidophilus (PROBIOTIC ORAL) Take by mouth. - MULTIVITAMIN ORAL Take by mouth. - OTC NUTRITIONAL SUPPLEMENT Tissue and Bone Nutritional Supplement - QXLLDABH-QA-OBU-FE-FA TAB TAKE ONE DAILY Problem List As Of Date 10/15/2021 Noted Resolved SUPERVIS OTHER NORMAL PREG [Z34.80] 06/08/2007 11/25/2007 History of [Z98.891] 03/27/2013 10/30/2013 Late care [O09.30] 03/27/2013 10/30/2013 Family history of cleft palate [Z82.79] 03/27/2013 10/30/2013 Supervision of other normal [Z34.80] 03/27/2013 10/30/2013 Encounter Status:Closed by PIPE ZARAGOZAR on 10/20/21 [facility] 08-22-2021 Miscellaneous Notes Call placed to patient. Detailed Message left on secure voicemail for patient to phone back to schedule an appointment with Dr. Haley for ultrasound results. Angelic Miller RN Patient calls to ask provider to review US of thyroid results from 08/11/21 and advise. Please review and advise, Angelic Miller RN documented in this encounter [facility] 08-11-2021 History of Presen t illness Narrative Radiology Service Progress Note PATIENT NAME: Irma Combs DATE OF SERVICE: August 11, 2021 TIME: 8:57 AM PATIENT IDENTITY VERIFICATION COMPLETED USING TWO (2) IDENTIFIERS: Name and Date of confirmed by patient verbally. FALL SCREENING: Has the patient had 2 falls in the last year or 1 fall with injury or currently using an Ambulatory Assistive Device (Walker, Cane, Wheelchair, Crutches, etc.)? No PATIENT GENDER DATA: Female. status: : No status: N/A PATIENT RELEVANT IMPLANT DATA REVIEWED: Yes RADIOLOGY DEPARTMENT: Ultrasound PERIPHERAL IV DATA: Not applicable SIGNED BY: Lora Esquivel RDMS RVT August 11, 2021 8:57 AM documented in this encounter [facility] documented as of this encounter (statuses as of 2021) [facility]12-09-2013 History of Past illness Narrative* Problem Noted Date Resolved Date History of 03/27/2013 10/30/2013 Overview: 03/27/2013Pt had a 3 previous C sections. She desires a repeat C section by Dr. Verna Colón. TKRN Late care 03/27/2013 10/30/2013 Overview: 03/27/2013She is 14 weeks 1 day by dates.TKRN Family history of cleft palate 03/27/2013 0 10/30/2013 Overview: 03/27/2013 Father of the baby's sister born with cleft lip. Patient declines quad marker screen.TKRN Supervision of other normal 03/27/2013 10/30/2013 Supervision of other normal 06/08/2007 11/25/2007 documented as of this encounter (statuses as of 08/22/2021) [facility] History of Past illness Narrative* Problem Noted Date Resolved Date History of 03/27/2013 10/30/2013 Overview: 03/27/2013Pt had a 3 previous C sections. She desires a repeat C section by Dr. Verna Colón. TKRN Late care 03/27/2013 10/30/2013 Overview: 03/27/2013She is 14 weeks 1 day by dates.TKRN Family history of cleft palate 03/27/2013 0 10/30/2013 Overview: 03/27/2013 Father of the baby's sister born with cleft lip. Patient declines quad marker screen.TKRN Supervision of other normal 03/27/2013 10/30/2013 Supervision of other normal 06/08/2007 11/25/2007 documented as of this encounter (statuses as of 10/20/2021) [facility] History of Past illness Narrative* Problem Noted Date Resolved Date History of 03/27/2013 10/30/2013 Overview: 03/27/2013Pt had a 3 previous C sections. She desires a repeat C section by Dr. Verna Colón. TKRN Late care 03/27/2013 10/30/2013 Overview: 03/27/2013She is 14 weeks 1 day by dates.TKRN Family history of cleft palate 03/27/2013 0 10/30/2013 Overview: 03/27/2013 Father of the baby's sister born with cleft lip. Patient declines quad marker screen.TKRN Supervision of other normal 03/27/2013 10/30/2013 Supervision of other normal 06/08/2007 11/25/2007 documented as of this encounter (statuses as of 04/03/2022) [facility] History of Past illness Narrative* Problem Noted Date Resolved Date History of 03/27/2013 10/30/2013 Overview: 03/27/2013Pt had a 3 previous C sections. She desires a repeat C section by Dr. Verna Colón. TKRN Late care 03/27/2013 10/30/2013 Overview: 03/27/2013She is 14 weeks 1 day by dates.TKRN Family history of cleft palate 03/27/2013 0 10/30/2013 Overview: 03/27/2013 Father of the baby's sister born with cleft lip. Patient declines quad marker screen.TKRN Supervision of other normal 03/27/2013 10/30/2013 Supervision of other normal 06/08/2007 11/25/2007 documented as of this encounter (statuses as of 04/06/2022) [facility] History of Past illness Narrative* Problem Noted Date Resolved Date History of 03/27/2013 10/30/2013 Overview: 03/27/2013Pt had a 3 previous C sections. She desires a repeat C section by Dr. Verna Colón. TKRN Late care 03/27/2013 10/30/2013 Overview: 03/27/2013She is 14 weeks 1 day by dates.TKRN Family history of cleft palate 03/27/2013 0 10/30/2013 Overview: 03/27/2013 Father of the baby's sister born with cleft lip. Patient declines quad marker screen.TKRN Supervision of other normal 03/27/2013 10/30/2013 Supervision of other normal 06/08/2007 11/25/2007 documented as of this encounter (statuses as of 04/18/2022) [facility] History of Past illness Narrative* Problem Noted Date Resolved Date History of 03/27/2013 10/30/2013 Overview: 03/27/2013Pt had a 3 previous C sections. She desires a repeat C section by Dr. Verna Colón. TKRN Late care 03/27/2013 10/30/2013 Overview: 03/27/2013She is 14 weeks 1 day by dates.TKRN Family history of cleft palate 03/27/2013 0 10/30/2013 Overview: 03/27/2013 Father of the baby's sister born with cleft lip. Patient declines quad marker screen.TKRN Supervision of other normal 03/27/2013 10/30/2013 Supervision of other normal 06/08/2007 11/25/2007 documented as of this encounter (statuses as of 04/22/2022) [facility] History of Past illness Narrative* Problem Noted Date Resolved Date History of 03/27/2013 10/30/2013 Overview: 03/27/2013Pt had a 3 previous C sections. She desires a repeat C section by Dr. Verna Colón. TKRN Late care 03/27/2013 10/30/2013 Overview: 03/27/2013She is 14 weeks 1 day by dates.TKRN Family history of cleft palate 03/27/2013 0 10/30/2013 Overview: 03/27/2013 Father of the baby's sister born with cleft lip. Patient declines quad marker screen.TKRN Supervision of other normal 03/27/2013 10/30/2013 Supervision of other normal 06/08/2007 11/25/2007 documented as of this encounter (statuses as of 05/26/2022) [facility] History of Past illness Narrative* Problem Noted Date Resolved Date History of 03/27/2013 10/30/2013 Overview: 03/27/2013Pt had a 3 previous C sections. She desires a repeat C section by Dr. Verna Colón. TKRN Late care 03/27/2013 10/30/2013 Overview: 03/27/2013She is 14 weeks 1 day by dates.TKRN Family history of cleft palate 03/27/2013 0 10/30/2013 Overview: 03/27/2013 Father of the baby's sister born with cleft lip. Patient declines quad marker screen.TKRN Supervision of other normal 03/27/2013 10/30/2013 Supervision of other normal 06/08/2007 11/25/2007 documented as of this encounter (statuses as of 05/28/2022) [facility] History of Past illness Narrative* Problem Noted Date Resolved Date History of 03/27/2013 10/30/2013 Overview: 03/27/2013Pt had a 3 previous C sections. She desires a repeat C section by Dr. Verna Colón. TKRN Late care 03/27/2013 10/30/2013 Overview: 03/27/2013She is 14 weeks 1 day by dates.TKRN Family history of cleft palate 03/27/2013 0 10/30/2013 Overview: 03/27/2013 Father of the baby's sister born with cleft lip. Patient declines quad marker screen.TKRN Supervision of other normal 03/27/2013 10/30/2013 Supervision of other normal 06/08/2007 11/25/2007 documented as of this encounter (statuses as of 06/23/2022) [facility] History of Past illness Narrative* Problem Noted Date Resolved Date History of 03/27/2013 10/30/2013 Overview: 03/27/2013Pt had a 3 previous C sections. She desires a repeat C section by Dr. Verna Colón. TKRN Late care 03/27/2013 10/30/2013 Overview: 03/27/2013She is 14 weeks 1 day by dates.TKRN Family history of cleft palate 03/27/2013 0 10/30/2013 Overview: 03/27/2013 Father of the baby's sister born with cleft lip. Patient declines quad marker screen.TKRN Supervision of other normal 03/27/2013 10/30/2013 Supervision of other normal 06/08/2007 11/25/2007 documented as of this encounter (statuses as of 06/23/2022) [facility] History of Past illness Narrative* Problem Noted Date Resolved Date History of 03/27/2013 10/30/2013 Overview: 03/27/2013Pt had a 3 previous C sections. She desires a repeat C section by Dr. Verna Colón. TKRN Late care 03/27/2013 10/30/2013 Overview: 03/27/2013She is 14 weeks 1 day by dates.TKRN Family history of cleft palate 03/27/2013 0 10/30/2013 Overview: 03/27/2013 Father of the baby's sister born with cleft lip. Patient declines quad marker screen.TKRN Supervision of other normal 03/27/2013 10/30/2013 Supervision of other normal 06/08/2007 11/25/2007 documented as of this encounter (statuses as of 06/24/2022) [facility] History of Past illness Narrative* Problem Noted Date Resolved Date History of 03/27/2013 10/30/2013 Overview: 03/27/2013Pt had a 3 previous C sections. She desires a repeat C section by Dr. Verna Colón. TKRN Late care 03/27/2013 10/30/2013 Overview: 03/27/2013She is 14 weeks 1 day by dates.TKRN Family history of cleft palate 03/27/2013 0 10/30/2013 Overview: 03/27/2013 Father of the baby's sister born with cleft lip. Patient declines quad marker screen.TKRN Supervision of other normal 03/27/2013 10/30/2013 Supervision of other normal 06/08/2007 11/25/2007 documented as of this encounter (statuses as of 06/25/2022) [facility] History of Past illness Narrative* Problem Noted Date Resolved Date History of 03/27/2013 10/30/2013 Overview: 03/27/2013Pt had a 3 previous C sections. She desires a repeat C section by Dr. Verna Colón. TKRN Late care 03/27/2013 10/30/2013 Overview: 03/27/2013She is 14 weeks 1 day by dates.TKRN Family history of cleft palate 03/27/2013 0 10/30/2013 Overview: 03/27/2013 Father of the baby's sister born with cleft lip. Patient declines quad marker screen.TKRN Supervision of other normal 03/27/2013 10/30/2013 Supervision of other normal 06/08/2007 11/25/2007 documented as of this encounter (statuses as of 07/15/2022) [facility] History of Past illness Narrative* Problem Noted Date Resolved Date History of 03/27/2013 10/30/2013 Overview: 03/27/2013Pt had a 3 previous C sections. She desires a repeat C section by Dr. Verna Colón. TKRN Late care 03/27/2013 10/30/2013 Overview: 03/27/2013She is 14 weeks 1 day by dates.TKRN Family history of cleft palate 03/27/2013 0 10/30/2013 Overview: 03/27/2013 Father of the baby's sister born with cleft lip. Patient declines quad marker screen.TKRN Supervision of other normal 03/27/2013 10/30/2013 Supervision of other normal 06/08/2007 11/25/2007 documented as of this encounter (statuses as of 07/15/2022) [facility] History of Past illness Narrative* Problem Noted Date Resolved Date History of 03/27/2013 10/30/2013 Overview: 03/27/2013Pt had a 3 previous C sections. She desires a repeat C section by Dr. Verna Colón. TKRN Late care 03/27/2013 10/30/2013 Overview: 03/27/2013She is 14 weeks 1 day by dates.TKRN Family history of cleft palate 03/27/2013 0 10/30/2013 Overview: 03/27/2013 Father of the baby's sister born with cleft lip. Patient declines quad marker screen.TKRN Supervision of other normal 03/27/2013 10/30/2013 Supervision of other normal 06/08/2007 11/25/2007 documented as of this encounter (statuses as of 07/16/2022) [facility] History of Past illness Narrative* Problem Noted Date Resolved Date History of 03/27/2013 10/30/2013 Overview: 03/27/2013Pt had a 3 previous C sections. She desires a repeat C section by Dr. Verna Colón. TKRN Late care 03/27/2013 10/30/2013 Overview: 03/27/2013She is 14 weeks 1 day by dates.TKRN Family history of cleft palate 03/27/2013 0 10/30/2013 Overview: 03/27/2013 Father of the baby's sister born with cleft lip. Patient declines quad marker screen.TKRN Supervision of other normal 03/27/2013 10/30/2013 Supervision of other normal 06/08/2007 11/25/2007 documented as of this encounter (statuses as of 07/20/2022) [facility] History of Past illness Narrative* Problem Noted Date Diagnosed Date Resolved Date History of 03/27/2013 014 Overview: 03/27/2013Pt had a 3 previous C sections. She desires a repeat C section by Dr. Verna Colón. TKRN Late care 03/27/2013 4 Overview: 03/27/2013She is 14 weeks 1 day by dates.TKRN Family history of cleft palate 03/27/2013 10/30/2013 Overview: 03/27/2013 Father of the baby's sister born with cleft lip. Patient declines quad marker screen.TKRN Supervision of other normal 03/27/2013 10/30/2013 Supervision of other normal 06/08/2007 11/25/2007 documented as of this encounter (statuses as of 02/21/2023) [facility] Thyroid nodule Nontoxic uninodular goiter [facility] Diagnosis Encounter for screening mammogram for breast cancer [facility] Diagnosis Acute cystitis with hematuria- Primary Acute cystitis Urinary frequency Burning with urination Dysuria Lipoma of other specified sites [facility] Diagnosis Burning with urination- Primary Dys[facility] Urinary frequency- Primary [facility] Diagnosis Urinary frequency- Primary [facility] Diagnosis Burning with urination- Primary Dysuria Vaginal discharge Leukorrhea, not specified as infective Pelvic pain Recurrent UTI (urinary tract infection) Urinary tract infection, site not specified [facility] Diagnosis Recurrent UTI (urinary tract infection)- Primary Urinary tract infection, site not specified [facility] Diagnosis Burning with urination Dysuria Vaginal discharge Leukorrhea, not specified as infective Recurrent UTI (urinary tract infection) Urinary tract infection, site not specified Pelvic pain documented in this encounter [facility] for referral (narrative)* Diagnostic Procedure Only (Routine) - Pending Review Specialty Diagnoses / Procedures Referred By Edie allen Referred To Contact [facility] Diagnoses Encounter for screening mammogram for breast cancer Procedures OLLIE SCREENING SCREENING MAMMOGRAPHY BI 2-VIEW BREAST INC CAD Rosina Jones APRN.SET UP WORKER [address] [place] [address] [facility] [address] [place] [address] Referral ID Status Reason Start Date Expiration Date Visits Requested Visits Authorized [id number] Pending Review Auto-Generat ed Referral 10/15/2021 11/14/2022 1 1 [facility] for referral (narrative)* Diagnostic Procedure Only (Urgent) - Authorized Specialty Diagnoses / Procedures Referred By Edie allen Referred To Contact [facility] Diagnoses Burning with urination Vaginal discharge Recurrent UTI (urinary tract infection) Pelvic pain Procedures US FEMALE PELVIS TRANSVAG US TRANSVAGINAL Rosina Jones APRN.SET UP WORKER [address] [place] [address] [facility] Referral ID Status Reason Start Date Expiration Date Visits Requested Visits Authorized [id number] Authorized Auto-Generat ed Referral Patient Cleared - [facility] 07/15/2022 08/14/2023 1 1 * Diagnostic Procedure Only (Urgent) - Authorized Specialty Diagnoses / Procedures Referred By Edie allen Referred To Contact [facility] Diagnoses Burning with urination Vaginal discharge Recurrent UTI (urinary tract infection) Pelvic pain Procedures US FEMALE PELVIS TRANSABD LTD US PELVIC NONOBSTETRIC IMAGE DCMTN LIMITED/F/U Rosina Jones APRN.SET UP WORKER [address] [place] [address] [facility] Referral ID Status Reason Start Date Expiration Date Visits Requested Visits Authorized [id number] Authorized Auto-Generat ed Referral Patient Cleared [facility] 07/15/2022 08/14/2023 1 1 [facility] Diagnostic Procedure Only (Urgent) - Closed Specialty Diagnoses / Procedures Referred By Contac t Referred To Contact [facility] Diagnoses Burning with urination Vaginal discharge Recurrent UTI (urinary tract infection) Pelvic pain Procedures US FEMALE PELVIS TRANSVAG US TRANSVAGINAL Rosina Jones APRN.SET UP WORKER [address] [place] [address] [place] [address] Referral ID Status Reason Start Date Expiration Date V isits Requested Visits Authorized [id number] Closed Auto-Generat ed Referral Patient Cleared [facility] 07/15/2022 08/14/2023 1 1 * Diagnostic Procedure Only (Urgent) - Closed Specialty Diagnoses / Procedures Referred By Contac t Referred To Contact [facility] Diagnoses Burning with urination Vaginal discharge Recurrent UTI (urinary tract infection) Pelvic pain Procedures US FEMALE PELVIS TRANSABD LTD US PELVIC NONOBSTETRIC IMAGE DCMTN LIMITED/F/U Rosina Jones APRN.SET UP WORKER [address] [place] [address] [place] [address] Referral ID Status Reason Start Date Expiration Date V isits Requested Visits Authorized [id number] Closed Auto-Generat ed Referral Patient [facility] 07/15/2022 08/14/2023 1 1 [facility] Reason for Referral Specialty Diagnoses / Procedures Referred By Contac t Referred To Contact Urology Diagnoses Recurrent UTI (urinary tract infection) Procedures CONSULT TO UROLOGY Rosina Jones APRN.SET UP WORKER [address] [place] [address] Referral ID Status Reason Start Date Expiration Date Visits Requested Visits Authorized [id number] Ref Not Required PCP Requested Referral 07/13/2022 07/13/2023 1 1 Summary Purpose Family History No Family History Records Found Advance Directives No Advanced Directives Records Found Additional Source Comments Source Comments (unrecognize d section and content) In the event this informatio n is protected by the Federal Confidentiality of Alcohol and Drug Abuse Patient Records regulations: The Federal rules restrict any use of the information to criminally investigate or prosecute any alcohol or drug abuse patient.[facility] the event this information is protected by the Federal Confidentiality of Alcohol and Drug Abuse Patient Records regulations: The Federal rules restrict any use of the information to criminally investigate or prosecute any alcohol or drug abuse patient.[facility] the event this information is protected by the Federal Confidentiality of Alcohol and Drug Abuse Patient Records regulations: The Federal rules restrict any use of the information to criminally investigate or prosecute any alcohol or drug abuse patient.[facility] the event this information is protected by the Federal Confidentiality of Alcohol and Drug Abuse Patient Records regulations: The Federal rules restrict any use of the information to criminally investigate or prosecute any alcohol or drug abuse patient.[facility] the event this information is protected by the Federal Confidentiality of Alcohol and Drug Abuse Patient Records regulations: The Federal rules restrict any use of the information to criminally investigate or prosecute any alcohol or drug abuse patient.[facility] the event this information is protected by the Federal Confidentiality of Alcohol and Drug Abuse Patient Records regulations: The Federal rules restrict any use of the information to criminally investigate or prosecute any alcohol or drug abuse patient.[facility] the event this information is protected by the Federal Confidentiality of Alcohol and Drug Abuse Patient Records regulations: The Federal rules restrict any use of the information to criminally investigate or prosecute any alcohol or drug abuse patient.[facility] the event this information is protected by the Federal Confidentiality of Alcohol and Drug Abuse Patient Records regulations: The Federal rules restrict any use of the information to criminally investigate or prosecute any alcohol or drug abuse patient.[facility] the event this information is protected by the Federal Confidentiality of Alcohol and Drug Abuse Patient Records regulations: The Federal rules restrict any use of the information to criminally investigate or prosecute any alcohol or drug abuse patient.[facility] the event this information is protected by the Federal Confidentiality of Alcohol and Drug Abuse Patient Records regulations: The Federal rules restrict any use of the information to criminally investigate or prosecute any alcohol or drug abuse patient.[facility] HospitalIn the event this information is protected by the Federal Confidentiality of Alcohol and Drug Abuse Patient Records regulations: The Federal rules restrict any use of the information to criminally investigate or prosecute any alcohol or drug abuse patient.[facility] HospitalIn the event this information is protected by the Federal Confidentiality of Alcohol and Drug Abuse Patient Records regulations: The Federal rules restrict any use of the information to criminally investigate or prosecute any alcohol or drug abuse patient.[facility] HospitalIn the event this information is protected by the Federal Confidentiality of Alcohol and Drug Abuse Patient Records regulations: The Federal rules restrict any use of the information to criminally investigate or prosecute any alcohol or drug abuse patient.[facility] HospitalIn the event this information is protected by the Federal Confidentiality of Alcohol and Drug Abuse Patient Records regulations: The Federal rules restrict any use of the information to criminally investigate or prosecute any alcohol or drug abuse patient.[facility] HospitalIn the event this information is protected by the Federal Confidentiality of Alcohol and Drug Abuse Patient Records regulations: The Federal rules restrict any use of the information to criminally investigate or prosecute any alcohol or drug abuse patient.[facility] HospitalIn the event this information is protected by the Federal Confidentiality of Alcohol and Drug Abuse Patient Records regulations: The Federal rules restrict any use of the information to criminally investigate or prosecute any alcohol or drug abuse patient.[facility] HospitalIn the event this information is protected by the Federal Confidentiality of Alcohol and Drug Abuse Patient Records regulations: The Federal rules restrict any use of the information to criminally investigate or prosecute any alcohol or drug abuse patient.[facility] HospitalIn the event this information is protected by the Federal Confidentiality of Alcohol and Drug Abuse Patient Records regulations: The Federal rules restrict any use of the information to criminally investigate or prosecute any alcohol or drug abuse patient.[facility] Reason for Visit (unrecogniz ed section and content) Specialty Diagnoses / Procedures Referred By Edie t Referred To Contact US IMAGING Diagnoses Thyroid nodule Procedures US THYROID/PARATHYROID ULTRASOUND OF THYROID Mary Haley MD [address] [place] [address] Us Imaging Referral ID Status Reason Start Date Expiration Date V isits Requested Visits Authorized [id number] Closed Auto-Generat ed Referral Patient Cleared [facility] 01/17/2021 01/26/2022 1 1 Reason Comments Results Reason Comments Lump Right shoulder, star megan with bursitis in the right arm x 4 months UTI Burning & frequency Specialty Diagnoses / Procedures Referred By Contac t Referred To Contact FAMILY MEDICINE Diagnoses Lump on Right ShoulderLump on Right Shoulder Procedures Consult, Test, Treat Rosina Jones APRN.SET UP WORKER [address] [place] [address] [facility] [address] [place] [address] Referral ID Status Reason Start Date Expiration Date V isits Requested Visits Authorized [id number] Closed Financial Clearance Required - OON Payor Patient Cleared [facility] 03/27/2022 04/18/2022 1 1 Reason Comments UTI Burning, frequency, blood in urine, lower back pain, never went away from first time. 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 Recently had UTI beginning of june. Reason Comments Urology consult Reason Comments Radiology US Specialty Diagnoses / Procedures Referred By Contac t Referred To Contact US IMAGING Diagnoses Burning with urination Vaginal discharge Recurrent UTI (urinary tract infection) Pelvic pain Procedures US FEMALE PELVIS TRANSVAG US TRANSVAGINAL Rosina Jones APRN.[employer] UP WORK[employer] [address] [place] [address] [place] [address] Referral ID Status Reason Start Date Expiration Date V isits Requested Visits Authorized [id number] Closed Auto-Generat ed Referral Patient Cleared [facility] 07/15/2022 08/14/2023 1 1 Care Teams (unrecognized sec tion and content) Core Rescuer Relationship Specialty Start Date End Date Rosina Jones APRN.[employer] WORK[employer] [address] [place] [address] PCP - General Family Practice 01/05/20 Core Rescuer Relationship Specialty Start Date End Date Rosina Jones, CLIN NURSE.[employer] WORK[employer] [address] [place] [address] PCP - General Family Practice 01/05/20 Core Rescuer Relationship Specialty Start Date End Date Rosina Jones, CLIN NURSE.[employer] UP WORK[employer] [address] [place] [address] PCP - General Family Medicine 01/05/20 Core Rescuer Relationship Specialty Start Date End Date Rosina Jones, CLIN NURSE.SET UP WORKER [address] [place] [address] PCP - General Family Medicine 01/05/20 Core Rescuer Relationship Specialty Start Date End Date Rosina Jones, CLIN NURSE.SET UP WORKER [address] [place] [address] PCP - General Family Medicine 01/05/20 Core Rescuer Relationship Specialty Start Date End Date Rosina Jones, CLIN NURSE.SET UP WORKER [address] [place] [address] PCP - General Family Medicine 01/05/20 Core Rescuer Relationship Specialty Start Date End Date Rosina Jones, CLIN NURSE.SET UP WORKER [address] [place] [address] PCP - General Family Medicine 01/05/20 Core Rescuer Relationship Specialty Start Date End Date Rosina Jones, CLIN NURSE.SET UP WORKER [address] [place] [address] PCP - General Family Medicine 01/05/20 Core Rescuer Relationship Specialty Start Date End Date Rosina Jones, CLIN NURSE.SET UP WORKER [address] [place] [address] PCP - General Family Medicine 01/05/20 Core Rescuer Relationship Specialty Start Date End Date Rosina Jones, CLIN NURSE.SET UP WORKER [address] [place], [place] [id number] PCP - General Family Medicine 01/05/20 Core Rescuer Relationship Specialty Start Date End Date Rosina Jones APRN.[employer] UP WORKER [address] [place], [place] [address] PCP - General Family Medicine 01/05/20 Core Rescuer Relationship Specialty Start Date End Date Rosina Jones APRN.[employer] UP WORKER [address] [place], [place] [id number] PCP - General Family Medicine 01/05/20 Core Rescuer Relationship Specialty Start Date End Date Rosina Jones APRN.[employer] UP WORKER [address] [place], [place] [address] PCP - General Family Medicine 01/05/20 Core Rescuer Relationship Specialty Start Date End Date Rosina Jones APRN.[employer] UP WORKER [address] [place], [place] [id number] PCP - General Family Medicine 01/05/20 INFORMATION SOURCE (unrecogn ized section and content) FOR RECORDS PERTAINING TO PATIENTS WHO ARE OR HAVE BEEN ENROLLED IN A CHEMICAL DEPENDENCY/SUBSTANCEABUSE PROGRAM, SOME INFORMATION MAY BE OMITTED. This clinical summary was aggregated from multiple sources. Caution should be exercised in using it in the provision of clinical care. This summary normalizes information from multiple sources, and as a consequence, information in this document may materially change the coding, format and clinical context of patient data. In addition, data may be omitted in some cases. CLINICAL DECISIONS SHOULD BE BASED ON THE PRIMARY CLINICAL RECORDS. [employer] [facility]. provides no warranty or guarantee of the accuracy or completeness of information in this document.
== END | disposition home or self-care (01) ==
PROVIDERS: PCP Nurse Practitioner Family; Referring Provider Physician Assistant; Visit Provider Physician Assistant
DX: R30.0 Dysuria (principal)
CPT/HCPCS: 87086; 87088